=== PATIENT | male | born 1940 | race African-American/Black ===

== ENCOUNTER 2022-01-12 12:58 | Inpatient (IN) | payer OTHER ==
[~2022-01-12] VITALS: Ht 177.8 cm; Wt 76.9 kg
[~2022-01-12 12:58] MED LIST: ALBU2.5V13; LISI2.5T47; PRED1TAB
[2022-01-12] MEDS ORDERED: METHYLPREDNISOLONE SOD SUCC 125 MG/2 ML VIAL IV STA (13:29)
[2022-01-12] MEDS ORDERED: ALBUTEROL (0.083%) 2.5MG/3ML NEB HHN STA (13:29)
[2022-01-12] MEDS ORDERED: IPRATROPIUM BROMIDE (0.02%) 0.5MG/2.5ML NEB HHN STA (13:29)
[2022-01-12] MEDS ORDERED: SODIUM CHLORIDE 0.9% 1,000 ML IV ONE ×2 (13:30)
[2022-01-12 14:29] LABS: BASOPHILS % 0.5 % (0.0-2.0); LYMPHOCYTES % 23.9 % (20.0-50.0); MEAN CORPUSCULAR HEMOGLOBIN 23.8 pg (28.0-32.0); MEAN CORPUSCULAR VOLUME 77.8 fL (80.0-94.0); MEAN PLATELET VOLUME 9.3 fl (7.4-10.4); MONOCYTES % 9.9 % (2.0-8.0); NEUTROPHILS % 62.7 % (40.0-76.0); PLATELET 100 x1000/uL (130-400); RED BLOOD CELL COUNT 4.62 mill/uL (4.7-6.1)
[2022-01-12 14:34] LABS: CHLORIDE 100 mEq/L (98-107)
[2022-01-12 14:38] LABS: ETHANOL BLOOD < 10 mg/dL
[2022-01-12 14:44] LABS: CREATINE KINASE 68 IU/L (39-308)
[2022-01-12 15:15] LABS: CLARITY URINE CLEAR (CLEAR); COLOR URINE YELLOW (YELLOW); KETONES URINE NEGATIVE (NEGATIVE); LEUKOCYTE ESTERASE URINE TRACE (NEGATIVE); NITRITE URINE POSITIVE (NEGATIVE); OCCULT BLOOD URINE 2+ (NEGATIVE); PROTEIN URINE TRACE (NEGATIVE); SPECIFIC GRAVITY URINE 1.014 (1.005-1.030); UROBILINOGEN URINE 0.2 E.U./dL (0.2-1.0)
[2022-01-12] MEDS ORDERED: CEFTRIAXONE 1,000 MG in DEXTROSE 5% WATER 50 ML IV SCH (15:45)
[2022-01-12 16:10] LABS: PROTHROMBIN TIME 10.9 sec (9.6-11.0)
[2022-01-12 16:27] LABS: CANNABINOID URINE SCREEN NEGATIVE (NEGATIVE); METHADONE URINE SCREEN NEGATIVE (NEGATIVE); OPIATES URINE SCREEN NEGATIVE (NEGATIVE); PHENCYCLIDINE URINE SCREEN NEGATIVE (NEGATIVE)
[2022-01-12 16:28] LABS: *AMPHETAMINES SCREEN URINE NEGATIVE (NEGATIVE); *BARBITURATES SCREEN URINE NEGATIVE (NEGATIVE); *BENZODIAZEPINES SCREEN URINE NEGATIVE (NEGATIVE); *COCAINE SCREEN URINE NEGATIVE (NEGATIVE)
[2022-01-12 17:19] LABS: BG BASE EXCESS 10.1 mmol/L (-2.0-2.0); BG CARBOXYHEMOGLOBIN 0.7 % (0.5-1.5); BG DEOXYHEMOGLOBIN 2.9 % (0.0-5.0); BG FRACTION INSPIRED OXYGEN 28; BG HCO3 ACT 40.3 mmol/L (22.0-26.0); BG METHEMOGLOBIN 0.5 % (0.0-1.5); BG OXYGEN SATURATION 97.1 % (92.0-98.5); BG OXYHEMOGLOBIN 95.9 % (94.0-97.0); BG PCO2 91.5 mmHg (35.0-45.0); BG PH 7.262 (7.350-7.450); BG PO2 93.7 mmHg (75.0-100.0); BG SAMPLE SITE RIGHT RADIAL; BG VENT MODE MASK - VENTI
[2022-01-12] MEDS ORDERED: CEFTRIAXONE 1 G PREMIX 50 ML IV NR (18:00)
[2022-01-12] MEDS ORDERED: DOCUSATE SODIUM 100MG CAPSULE PO PRN (18:45)
[2022-01-12] MEDS ORDERED: ACETAMINOPHEN 325MG TABLET PO PRN (18:45)
[2022-01-12] MEDS ORDERED: GUAIFENESIN 200MG/10ML SUGAR FREE UDC PO PRN (18:45)
[2022-01-12] MEDS ORDERED: CLONIDINE 0.1MG TABLET PO PRN (18:45)
[2022-01-12] MEDS ORDERED: ONDANSETRON HCL 4MG/2ML INJ IV PRN (18:45)
[2022-01-12] MEDS: ENOXAPARIN 40MG/0.4ML SYR SUBCUT SCH (20:28)
[2022-01-12] MEDS: IPRATROPIUM BROMIDE (0.02%) 0.5MG/2.5ML NEB HHN SCH (20:59)
[2022-01-12] MEDS ORDERED: AZITHROMYCIN 500MG/250ML 250 ML IV NR (22:00)
[2022-01-12] MEDS: METHYLPREDNISOLONE SOD SUCC 40 MG/ML VIAL IV SCH (22:13)
[2022-01-12 22:27] LABS: BG BASE EXCESS 9.6 mmol/L (-2.0-2.0); BG CARBOXYHEMOGLOBIN 0.8 % (0.5-1.5); BG DEOXYHEMOGLOBIN 4.3 % (0.0-5.0); BG FRACTION INSPIRED OXYGEN 40; BG HCO3 ACT 37.6 mmol/L (22.0-26.0); BG METHEMOGLOBIN 0.6 % (0.0-1.5); BG OXYGEN SATURATION 95.6 % (92.0-98.5); BG OXYHEMOGLOBIN 94.3 % (94.0-97.0); BG PCO2 70.7 mmHg (35.0-45.0); BG PH 7.344 (7.350-7.450); BG PO2 75.3 mmHg (75.0-100.0); BG SAMPLE SITE RIGHT RADIAL; BG TOTAL HEMOGLOBIN 11.7 g/dL (12.0-18.0); BG TOTAL RESPIRATORY RATE 22 b/min; BG VENT MODE MASK - BIPAP
[2022-01-13] VITALS (10 sets, daily range): BP systolic 92–120; BP diastolic 54–76
[2022-01-13] MEDS: IPRATROPIUM BROMIDE (0.02%) 0.5MG/2.5ML NEB HHN SCH ×6 (01:02→20:58)
[2022-01-13] MEDS: METHYLPREDNISOLONE SOD SUCC 40 MG/ML VIAL IV SCH ×3 (06:18→22:17)
[2022-01-13 09:26] LABS: CHLORIDE 99 mEq/L (98-107)
[2022-01-13 09:36] LABS: BASOPHILS % 0.1 % (0.0-2.0); HEMATOCRIT. 34.7 % (42.0-52.0); HEMOGLOBIN. 10.8 g/dL (14.0-18.0); LYMPHOCYTES % 13.5 % (20.0-50.0); MEAN CORPUSCULAR HEMOGLOBIN 23.5 pg (28.0-32.0); MEAN CORPUSCULAR VOLUME 75.7 fL (80.0-94.0); MEAN PLATELET VOLUME 9.2 fl (7.4-10.4); MONOCYTES % 3.5 % (2.0-8.0); NEUTROPHILS % 82.9 % (40.0-76.0); PLATELET 109 x1000/uL (130-400); RED BLOOD CELL COUNT 4.58 mill/uL (4.7-6.1); RED CELL DISTRIBUTION WIDTH 14.6 % (11.6-14.6)
[2022-01-13 10:46] LABS: BG BASE EXCESS 15.2 mmol/L (-2.0-2.0); BG CARBOXYHEMOGLOBIN 0.8 % (0.5-1.5); BG DEOXYHEMOGLOBIN 6.3 % (0.0-5.0); BG FRACTION INSPIRED OXYGEN 40; BG HCO3 ACT 42.5 mmol/L (22.0-26.0); BG METHEMOGLOBIN 0.4 % (0.0-1.5); BG OXYGEN SATURATION 93.6 % (92.0-98.5); BG OXYHEMOGLOBIN 92.5 % (94.0-97.0); BG PO2 62.3 mmHg (75.0-100.0); BG TOTAL HEMOGLOBIN 11.8 g/dL (12.0-18.0); BG VENT MODE MASK - VENTI
[2022-01-13] MEDS ORDERED: FLUT1BLS9 IH (11:49)
[2022-01-13] MEDS: CEFTRIAXONE 1,000 MG in DEXTROSE 5% WATER 50 ML IV SCH (15:25)
[2022-01-13] MEDS: BUDESONIDE 0.5MG/2ML NEB HHN SCH (16:31)
[2022-01-13] MEDS ORDERED: CEFTRIAXONE 1 G PREMIX 50 ML IV SCH (18:00)
[2022-01-13] MEDS: ENOXAPARIN 40MG/0.4ML SYR SUBCUT SCH (20:33)
[2022-01-14] VITALS (16 sets, daily range): BP systolic 84–116; BP diastolic 51–77
[2022-01-14] MEDS ORDERED: DILTIAZEM HCL 5MG/ML 5ML VIAL IV NR ×2 (00:15→10:15)
[2022-01-14] MEDS ORDERED: DILTIAZEM HCL 125 MG in DEXT 5% WATER 100 ML IV PRN (00:15)
[2022-01-14] MEDS: IPRATROPIUM BROMIDE (0.02%) 0.5MG/2.5ML NEB HHN SCH ×6 (01:09→20:28)
[2022-01-14] MEDS: BUDESONIDE 0.5MG/2ML NEB HHN SCH ×3 (04:44→20:28)
[2022-01-14] MEDS: METHYLPREDNISOLONE SOD SUCC 40 MG/ML VIAL IV SCH ×3 (05:37→21:03)
[2022-01-14 06:13] LABS: CHLORIDE 100 mEq/L (98-107)
[2022-01-14 06:20] LABS: BASOPHILS % 0.1 % (0.0-2.0); HEMATOCRIT. 35.7 % (42.0-52.0); LYMPHOCYTES % 11.9 % (20.0-50.0); MEAN CORPUSCULAR HEMOGLOBIN 23.1 pg (28.0-32.0); MEAN CORPUSCULAR VOLUME 75.3 fL (80.0-94.0); MEAN PLATELET VOLUME 9.8 fl (7.4-10.4); MONOCYTES % 4.4 % (2.0-8.0); NEUTROPHILS % 83.6 % (40.0-76.0); PLATELET 126 x1000/uL (130-400); RED BLOOD CELL COUNT 4.74 mill/uL (4.7-6.1); RED CELL DISTRIBUTION WIDTH 14.8 % (11.6-14.6)
[2022-01-14 10:16] LABS: TOTAL IRON BINDING CAPACITY 239 ug/dL (250-450)
[2022-01-14] MEDS: ENOXAPARIN 80MG/0.8ML SYR SUBCUT SCH ×2 (10:25→21:03)
[2022-01-14] MEDS: DILTIAZEM HCL 125 MG in DEXT 5% WATER 100 ML IV PRN ×2 (10:45→15:39)
[2022-01-14] MEDS: DILTIAZEM HCL 30MG TABLET PO SCH ×2 (14:00→17:23)
[2022-01-14] MEDS: CEFTRIAXONE 1,000 MG in DEXTROSE 5% WATER 50 ML IV SCH (14:17)
[2022-01-15] VITALS (12 sets, daily range): BP systolic 101–121; BP diastolic 62–84
[2022-01-15] MEDS: DILTIAZEM HCL 30MG TABLET PO SCH ×4 (00:27→17:23)
[2022-01-15] MEDS: IPRATROPIUM BROMIDE (0.02%) 0.5MG/2.5ML NEB HHN SCH ×6 (00:39→20:18)
[2022-01-15] MEDS: METHYLPREDNISOLONE SOD SUCC 40 MG/ML VIAL IV SCH (05:21)
[2022-01-15 06:55] LABS: CHLORIDE 100 mEq/L (98-107)
[2022-01-15 07:00] LABS: BASOPHILS % 0.1 % (0.0-2.0); HEMATOCRIT. 35.6 % (42.0-52.0); HEMOGLOBIN. 11.1 g/dL (14.0-18.0); LYMPHOCYTES % 15.6 % (20.0-50.0); MEAN CORPUSCULAR HEMOGLOBIN 23.3 pg (28.0-32.0); MEAN CORPUSCULAR VOLUME 74.6 fL (80.0-94.0); MEAN PLATELET VOLUME 9.8 fl (7.4-10.4); MONOCYTES % 5.6 % (2.0-8.0); NEUTROPHILS % 78.7 % (40.0-76.0); PLATELET 124 x1000/uL (130-400); RED BLOOD CELL COUNT 4.78 mill/uL (4.7-6.1); RED CELL DISTRIBUTION WIDTH 14.2 % (11.6-14.6)
[2022-01-15] MEDS: ENOXAPARIN 80MG/0.8ML SYR SUBCUT SCH (08:44)
[2022-01-15] MEDS: CEFTRIAXONE 1,000 MG in DEXTROSE 5% WATER 50 ML IV SCH (12:49)
[2022-01-15] MEDS: APIXABAN 5 MG TABLET PO SCH (17:23)
[2022-01-15] MEDS: BUDESONIDE 0.5MG/2ML NEB HHN SCH (20:18)
[2022-01-16] VITALS: BP 124/79
[2022-01-16] MEDS: DILTIAZEM HCL 30MG TABLET PO SCH ×2 (00:14→06:00)
[2022-01-16] MEDS: IPRATROPIUM BROMIDE (0.02%) 0.5MG/2.5ML NEB HHN SCH ×3 (01:33→09:39)
[2022-01-16 02:00] VITALS: BP 109/76
[2022-01-16 04:00] VITALS: BP 110/78
[2022-01-16 06:00] VITALS: BP 112/78
[2022-01-16 08:00] VITALS: BP 113/68
[2022-01-16] MEDS: APIXABAN 5 MG TABLET PO SCH (08:34)
[2022-01-16 08:36] LABS: CHLORIDE 101 mEq/L (98-107)
[2022-01-16 08:39] LABS: HEMATOCRIT. 37.7 % (42.0-52.0); LYMPHOCYTES % 19.8 % (20.0-50.0); MEAN CORPUSCULAR HEMOGLOBIN 23.8 pg (28.0-32.0); MEAN CORPUSCULAR VOLUME 74.7 fL (80.0-94.0); MEAN PLATELET VOLUME 9.7 fl (7.4-10.4); MONOCYTES % 13.8 % (2.0-8.0); NEUTROPHILS % 66.4 % (40.0-76.0); PLATELET 125 x1000/uL (130-400); RED BLOOD CELL COUNT 5.04 mill/uL (4.7-6.1); RED CELL DISTRIBUTION WIDTH 14.6 % (11.6-14.6)
[2022-01-16] MEDS ORDERED: METHYLPREDNISOLONE SOD SUCC 40 MG/ML VIAL IV SCH (09:00)
[2022-01-16] MEDS ORDERED: APIX5TAB PO (09:05)
[2022-01-16] MEDS ORDERED: DILT30TA38 PO (09:05)
[2022-01-16] MEDS ORDERED: P20 MT (09:05)
[2022-01-16] MEDS: BUDESONIDE 0.5MG/2ML NEB HHN SCH (09:38)
[2022-01-16 09:45] VITALS: BP_SYST 101; BP_SYST 130; BP_DIAS 73; BP_DIAS 94
== END 2022-01-16 11:21 | disposition home or self-care (01) | DRG 871 ==
LOC: ER 12:58 → EDBD 12:58 → EDBEDREQTM 16:03 → EDBEDREQSVC 16:03 → EDBEDREQ 16:03 → MICUSO 18:20 → EDBEDREQ 18:24 → EDBEDREQTM 18:24 → EDBEDREQSVC 18:24 → EDBEDREQ 23:15 → 3WST 01-13 10:21
PROVIDERS: ADMIT Internal Medicine; ATTEND Internal Medicine
PROC: 5A09357 Assistance with Respiratory Ventilation, Less than 24 Consecutive Hours, Continuous Positive Airway Pressure (ICD-10-PCS; principal; 2022-01-12)
PROC: 5A09357 Assistance with Respiratory Ventilation, Less than 24 Consecutive Hours, Continuous Positive Airway Pressure (ICD-10-PCS; 2022-01-13)
DX: A41.59 Other Gram-negative sepsis (principal); J96.22 Acute and chronic respiratory failure with hypercapnia; E44.1 Mild protein-calorie malnutrition; G93.40 Encephalopathy, unspecified; J44.1 Chronic obstructive pulmonary disease with (acute) exacerbation; J84.9 Interstitial pulmonary disease, unspecified; N39.0 Urinary tract infection, site not specified; I42.9 Cardiomyopathy, unspecified; Z20.822 Contact with and (suspected) exposure to COVID-19; D64.9 Anemia, unspecified; I48.0 Paroxysmal atrial fibrillation; D69.6 Thrombocytopenia, unspecified; F17.200 Nicotine dependence, unspecified, uncomplicated; I10 Essential (primary) hypertension; Z85.46 Personal history of malignant neoplasm of prostate; Z99.81 Dependence on supplemental oxygen; Z68.24 Body mass index [BMI] 24.0-24.9, adult; Z79.899 Other long term (current) drug therapy; Z71.6 Tobacco abuse counseling
CPT/HCPCS: 36415; 36600; 71045; 80048; 80053; 80305; 80320; 81003; 82375; 82550; 82805; 83540; 83550; 83605; 83735; 83880; 84145; 84443; 84484; 85025; 87077; 87186; 87426; 93005; 93306; 94640; 94660; 97162; 99291; J0456; J0696; J1650; J2920; J2930; J3490; J7030; J7060; J7626; G0480

== ENCOUNTER 2022-10-30 23:51 | Inpatient (IN) | payer OTHER ==
[~2022-10-30] VITALS: Ht 170.2 cm; Wt 66.2 kg
[~2022-10-30 23:51] MED LIST changes: +APIX5TAB PO; +DILT30TA38 PO; +FLUT1BLS9 IH; +P20 MT; -PRED1TAB
[2022-10-31] MEDS ORDERED: METHYLPREDNISOLONE SOD SUCC 125 MG/2 ML VIAL IV STA (00:20)
[2022-10-31] MEDS ORDERED: IPRATROPIUM BROMIDE (0.02%) 0.5MG/2.5ML NEB HHN STA (00:20)
[2022-10-31] MEDS ORDERED: ALBUTEROL (0.083%) 2.5MG/3ML NEB HHN STA (00:20)
[2022-10-31 01:07] LABS: BASOPHILS % 0.4 % (0.0-2.0); EOSINOPHILS % 1.9 % (0.0-5.0); HEMATOCRIT. 41.8 % (42.0-52.0); HEMOGLOBIN. 12.7 g/dL (14.0-18.0); LYMPHOCYTES % 23.4 % (20.0-50.0); MEAN CORPUSCULAR HEMOGLOBIN 23.1 pg (28.0-32.0); MEAN CORPUSCULAR VOLUME 75.9 fL (80.0-94.0); MEAN PLATELET VOLUME 8.9 fl (7.4-10.4); MONOCYTES % 8.6 % (2.0-8.0); NEUTROPHILS % 65.7 % (40.0-76.0); PLATELET 122 x1000/uL (130-400); RED BLOOD CELL COUNT 5.51 mill/uL (4.7-6.1); RED CELL DISTRIBUTION WIDTH 16.3 % (11.6-14.6)
[2022-10-31 01:15] LABS: CHLORIDE 97 mEq/L (98-107)
[2022-10-31 01:24] LABS: INR 1.1; PROTHROMBIN TIME 11.8 sec (9.6-11.0)
[2022-10-31 03:06] LABS: BG BASE EXCESS 11.8 mmol/L (-2.0-2.0); BG CARBOXYHEMOGLOBIN 1.5 % (0.5-1.5); BG HCO3 ACT 43.3 mmol/L (22.0-26.0); BG METHEMOGLOBIN 0.3 % (0.0-1.5); BG OXYGEN SATURATION 92.9 % (92.0-98.5); BG OXYHEMOGLOBIN 91.2 % (94.0-97.0); BG PCO2 104.5 mmHg (35.0-45.0); BG PH 7.235 (7.350-7.450); BG SAMPLE SITE RIGHT BRACHIAL; BG TOTAL HEMOGLOBIN 12.4 g/dL (12.0-18.0); BG VENT MODE NASAL CANNULA
[2022-10-31] MEDS ORDERED: ONDANSETRON HCL 4MG/2ML INJ IV PRN (08:30)
[2022-10-31] MEDS ORDERED: ACETAMINOPHEN 325MG TABLET PO PRN (08:30)
[2022-10-31] MEDS: METHYLPREDNISOLONE SOD SUCC 40 MG/ML VIAL IV SCH ×2 (09:17→16:39)
[2022-10-31 09:43] LABS: CLARITY URINE CLEAR (CLEAR); COLOR URINE YELLOW (YELLOW); KETONES URINE NEGATIVE (NEGATIVE); LEUKOCYTE ESTERASE URINE NEGATIVE (NEGATIVE); NITRITE URINE NEGATIVE (NEGATIVE); OCCULT BLOOD URINE TRACE (NEGATIVE); PH URINE 5.5 (4.5-8.0); PROTEIN URINE 1+ (NEGATIVE); SPECIFIC GRAVITY URINE 1.012 (1.005-1.030); UROBILINOGEN URINE 0.2 E.U./dL (0.2-1.0)
[2022-10-31] MEDS ORDERED: IPRATROPIUM/ALBUTEROL 0.5-3(2.5)MG/3ML NEB HHN PRN (10:15)
[2022-10-31 10:44] LABS: BG BASE EXCESS 14.9 mmol/L (-2.0-2.0); BG CARBOXYHEMOGLOBIN 0.3 % (0.5-1.5); BG DEOXYHEMOGLOBIN 3.6 % (0.0-5.0); BG FRACTION INSPIRED OXYGEN 50; BG HCO3 ACT 45.4 mmol/L (22.0-26.0); BG METHEMOGLOBIN 0.4 % (0.0-1.5); BG OXYGEN SATURATION 96.4 % (92.0-98.5); BG OXYHEMOGLOBIN 95.7 % (94.0-97.0); BG PCO2 93.4 mmHg (35.0-45.0); BG PH 7.305 (7.350-7.450); BG PO2 91.9 mmHg (75.0-100.0); BG SAMPLE SITE RIGHT RADIAL; BG TOTAL HEMOGLOBIN 12.8 g/dL (12.0-18.0); BG TOTAL RESPIRATORY RATE 28 b/min; BG VENT MODE MASK - BIPAP
[2022-10-31] MEDS: IPRATROPIUM/ALBUTEROL 0.5-3(2.5)MG/3ML NEB HHN SCH ×4 (11:21→23:48)
[2022-10-31] MEDS: FAMOTIDINE 20MG TABLET PO SCH (21:07)
[2022-11-01] VITALS (7 sets, daily range): BP systolic 102–117; BP diastolic 64–77
[2022-11-01] MEDS: METHYLPREDNISOLONE SOD SUCC 40 MG/ML VIAL IV SCH ×3 (00:52→17:39)
[2022-11-01] MEDS: IPRATROPIUM/ALBUTEROL 0.5-3(2.5)MG/3ML NEB HHN SCH ×4 (03:03→20:22)
[2022-11-01] MEDS ORDERED: P20 MT (11:35)
[2022-11-01] MEDS: FAMOTIDINE 20MG TABLET PO SCH (20:34)
[2022-11-02] VITALS (10 sets, daily range): BP systolic 105–126; BP diastolic 65–71
[2022-11-02] MEDS: METHYLPREDNISOLONE SOD SUCC 40 MG/ML VIAL IV SCH ×3 (00:13→17:01)
[2022-11-02] MEDS: IPRATROPIUM/ALBUTEROL 0.5-3(2.5)MG/3ML NEB HHN SCH ×5 (00:25→16:39)
== END 2022-11-02 18:11 | disposition home or self-care (01) | DRG 189 ==
LOC: ER 23:51 → MICUSO 10-31 03:29 → EDBEDREQTM 10-31 03:35 → EDBEDREQ 10-31 03:35 → EDBEDREQSVC 10-31 03:35 → 5EST 11-01 09:36
PROVIDERS: ADMIT Internal Medicine; ATTEND Internal Medicine
PROC: 5A09357 Assistance with Respiratory Ventilation, Less than 24 Consecutive Hours, Continuous Positive Airway Pressure (ICD-10-PCS; principal; 2022-10-31)
DX: J96.21 Acute and chronic respiratory failure with hypoxia (principal); J44.1 Chronic obstructive pulmonary disease with (acute) exacerbation; E87.29 Other acidosis; I50.22 Chronic systolic (congestive) heart failure; J96.22 Acute and chronic respiratory failure with hypercapnia; I11.0 Hypertensive heart disease with heart failure; I48.0 Paroxysmal atrial fibrillation; Z20.822 Contact with and (suspected) exposure to COVID-19; F17.210 Nicotine dependence, cigarettes, uncomplicated; Z99.81 Dependence on supplemental oxygen; Z85.46 Personal history of malignant neoplasm of prostate
CPT/HCPCS: 36415; 36600; 71045; 80053; 81003; 82375; 82805; 83605; 83880; 84484; 85025; 87426; 87804; 93005; 94640; 97162; 99291; J2920; J2930; A4315

== ENCOUNTER 2024-01-06 00:48 | Emergency (ER) | payer OTHER ==
[~2024-01-06] VITALS: Ht 182.9 cm; Wt 72.0 kg
[~2024-01-06 00:48] MED LIST changes: -ALBU2.5V13; +ALBU2.5V13 IH; +ALBU6.7H3 INH; +AMI2; +CARV3.1242 PO; -DILT30TA38 PO; -FLUT1BLS9 IH; +FURO20TA4 PO; -LISI2.5T47; +ROSU20TA2 PO; +TIOT4MIS2 IH
[2024-01-06 01:31] LABS: HEMATOCRIT. 35.5 % (42.0-52.0); HEMOGLOBIN. 10.7 g/dL (14.0-18.0); MEAN CORPUSCULAR HEMOGLOBIN 23.4 pg (28.0-32.0); MEAN CORPUSCULAR HGB CONC 30.1 g/dL (31.0-37.0); MEAN CORPUSCULAR VOLUME 77.7 fL (80.0-94.0); MEAN PLATELET VOLUME 9.5 fl (7.4-10.4); PLATELET 137 x1000/uL (130-400); RED BLOOD CELL COUNT 4.56 mill/uL (4.7-6.1); RED CELL DISTRIBUTION WIDTH 17.3 % (11.6-14.6); WHITE BLOOD COUNT 7.6 x1000/uL (4.5-11.0)
[2024-01-06 01:33] LABS: DIFFERENTIAL COMMENT 1
[2024-01-06 01:46] LABS: ALANINE AMINOTRANSFERASE 11 IU/L (10-49); ALBUMIN 3.6 g/dL (3.2-4.8); ASPARTATE AMINOTRANSFERASE 22 IU/L (<34); BILIRUBIN TOTAL 0.2 mg/dL (0.1-1.0); CHLORIDE 102 mEq/L (98-107); CREATININE 0.9 mg/dL (0.6-1.3); GLUCOSE 94 mg/dL (70-105); PROTEIN TOTAL 6.2 g/dL (6.0-8.3); SODIUM 145 mEq/L (136-145); TROPONIN I HIGH SENSITIVITY 5 ng/L (3.0-53); UREA NITROGEN BLOOD 7 mg/dL (9-23)
[2024-01-06 01:47] LABS: CARBON DIOXIDE > 40 mEq/L (21-32); ETHANOL BLOOD < 10 mg/dL (<10)
[2024-01-06] MEDS ORDERED: ALBUTEROL (0.083%) 2.5MG/3ML NEB HHN NR (02:14)
[2024-01-06] MEDS ORDERED: IPRATROPIUM BROMIDE (0.02%) 0.5MG/2.5ML NEB HHN NR (02:14)
[2024-01-06 02:45] LABS: PLATELET ESTIMATE NORMAL
[2024-01-06 02:48] LABS: HYPOCHROMASIA 1+; MICROCYTOSIS 1+
[2024-01-06 03:51] VITALS: O2SAT 100
[2024-01-06] MEDS: METHYLPREDNISOLONE SOD SUCC 125MG/2ML (ACT-O-VIAL) IV NR (04:19)
[2024-01-06 06:31] VITALS: TEMP 98.2
[2024-01-06 06:38] VITALS: BP 108/70; PULSE 90; RESP 20
== END 2024-01-06 06:10 | disposition short-term general hospital (02) ==
LOC: ER 00:48
DX: J44.1 Chronic obstructive pulmonary disease with (acute) exacerbation (principal); E87.3 Alkalosis; I50.9 Heart failure, unspecified; Z00.00 Encounter for general adult medical examination without abnormal findings; Z79.899 Other long term (current) drug therapy; Z20.822 Contact with and (suspected) exposure to COVID-19
CPT/HCPCS: 80053; 80320; 83880; 83605; 85025; 87040; 84484; 36415; 71045; 93005; 96374; 99285; 87426; J2930; G0480

== ENCOUNTER 2024-08-11 04:47 | Emergency (ER) | payer MEDICARE, OTHER ==
[~2024-08-11] VITALS: Ht 172.7 cm; Wt 68.0 kg
[~2024-08-11 04:47] MED LIST changes: +ACET-2708 MT; +ACET650S27 RC; -ALBU2.5V13 IH; +ALBU6.7H15 PO; -ALBU6.7H3 INH; -AMI2; +AMI2 PO; +APIX5TAB MT; -APIX5TAB PO; +CARB15DR68 OT; +DOCU-150 MT; -FURO20TA4 PO; +HALO2ORA3 MT; +HYOS-16 SL; +IPRA3AMP31 IH; +LORA-249 MT; +ONDA-241 MT; -P20 MT; +POLY17PO3 MT; +ROFL500T9 PO; -ROSU20TA2 PO; -TIOT4MIS2 IH; +[UNRECOGNIZED DRUG - CODE] PO
[2024-08-11 04:51] VITALS: O2SAT 98
[2024-08-11] MEDS: SODIUM CHLORIDE 0.9% 1,000 ML IV ONE (05:45)
[2024-08-11] MEDS: MORPHINE SULFATE 4 MG/ML INJ (FOR IV/IM USE) IV STA (06:19)
[2024-08-11] MEDS: ONDANSETRON HCL 4MG/2ML INJ IV STA (06:19)
[2024-08-11 06:57] LABS: BASOPHILS % 0.6 % (0.0-2.0); DIFFERENTIAL COMMENT 0; EOSINOPHILS % 2.1 % (0.0-5.0); HEMATOCRIT. 35.6 % (42.0-52.0); HEMOGLOBIN. 10.8 g/dL (14.0-18.0); LYMPHOCYTES % 33.6 % (20.0-50.0); MEAN CORPUSCULAR HEMOGLOBIN 22.6 pg (28.0-32.0); MEAN CORPUSCULAR HGB CONC 30.4 g/dL (31.0-37.0); MEAN CORPUSCULAR VOLUME 74.1 fL (80.0-94.0); MEAN PLATELET VOLUME 9.2 fl (7.4-10.4); MONOCYTES % 9.6 % (2.0-8.0); NEUTROPHILS % 54.1 % (40.0-76.0); PLATELET 151 x1000/uL (130-400); RED CELL DISTRIBUTION WIDTH 17.5 % (11.6-14.6)
[2024-08-11 07:04] LABS: CHLORIDE 103 mEq/L (98-107); POTASSIUM 3.9 mEq/L (3.5-5.1); SODIUM 145 mEq/L (136-145)
[2024-08-11 07:05] LABS: CALCIUM 9.8 mg/dL (8.7-10.4); CARBON DIOXIDE 36 mEq/L (21-32)
[2024-08-11 07:10] LABS: CREATININE 0.7 mg/dL (0.6-1.3); GLUCOSE 76 mg/dL (70-105); UREA NITROGEN BLOOD 11 mg/dL (9-23)
[2024-08-11 07:11] LABS: TROPONIN I HIGH SENSITIVITY 5 ng/L (3.0-53)
[2024-08-11 07:12] LABS: ALANINE AMINOTRANSFERASE 14 IU/L (10-49); ASPARTATE AMINOTRANSFERASE 22 IU/L (<34)
[2024-08-11 07:13] LABS: BILIRUBIN TOTAL 0.3 mg/dL (0.1-1.0); PROTEIN TOTAL 6.7 g/dL (6.0-8.3)
[2024-08-11 07:19] LABS: BILIRUBIN DIRECT < 0.1 mg/dL (<=3.0)
[2024-08-11 07:20] LABS: ETHANOL BLOOD < 10 mg/dL (<10)
[2024-08-11 08:54] LABS: INR 2.1; PROTHROMBIN TIME 22.4 sec (9.6-11.0)
[2024-08-11 09:05] LABS: TROPONIN I HIGH SENSITIVITY < 4 ng/L (3.0-53)
[2024-08-11 10:39] LABS: CLARITY URINE CLEAR (CLEAR); COLOR URINE YELLOW (YELLOW); GLUCOSE URINE NEGATIVE (NEGATIVE); KETONES URINE 1+ (NEGATIVE); LEUKOCYTE ESTERASE URINE NEGATIVE (NEGATIVE); NITRITE URINE NEGATIVE (NEGATIVE); OCCULT BLOOD URINE TRACE (NEGATIVE); PH URINE 5.5 (4.5-8.0); PROTEIN URINE NEGATIVE (NEGATIVE); UROBILINOGEN URINE 0.2 E.U./dL (0.2-1.0)
[2024-08-11 11:04] LABS: MUCUS URINE TRACE /lpf (NONE/TRACE); SQUAMOUS EPITHELIAL CELL URINE 1+ /lpf (RARE/1+)
[2024-08-11 11:06] LABS: BACTERIA URINE TRACE; RBC URINE 0-2 /hpf (0-2); WBC URINE 0-2 /hpf (0-2)
[2024-08-11] MEDS: IPRATROPIUM/ALBUTEROL 0.5-3(2.5)MG/3ML NEB HHN NR (14:53)
[2024-08-11 14:54] VITALS: PULSE 108; RESP 27
[2024-08-11 17:19] VITALS: BP 110/78; PULSE 80; RESP 16; TEMP 36.89184; O2SAT 98
== END 2024-08-11 17:20 | disposition home or self-care (01) ==
LOC: ER 04:47 → CANBEDREQ 13:24 → ER 17:20
DX: R10.9 Unspecified abdominal pain (principal); R06.02 Shortness of breath; I50.9 Heart failure, unspecified; Z79.899 Other long term (current) drug therapy
CPT/HCPCS: 80076; 80048; 81003; 80320; 83605; 83690; 85025; 85610; 84484; 36415; 71045; 74176; 94640; 93005; 96361; 96374; 96375; 99285; J2405; J2270; J7030; G0480

== ENCOUNTER 2024-10-17 09:53 | Inpatient (IN) | payer OTHER ==
[~2024-10-17] VITALS: Ht 172.7 cm; Wt 64.2 kg
[~2024-10-17 09:53] MED LIST changes: -DOCU-150 MT; +DOCU-422 MT
[2024-10-17] MEDS: PIPERACILLIN/TAZO 3.375G/50ML 50 ML IV ONE (10:30)
[2024-10-17] MEDS: VANCOMYCIN 1G PREMIX 200 ML IV ONE (10:30)
[2024-10-17] MEDS: SODIUM CHLORIDE 0.9% (SEPSIS BOLUS) IV ONE (10:42)
[2024-10-17 11:06] LABS: BASOPHILS % 0.4 % (0.0-2.0); DIFFERENTIAL COMMENT 0; EOSINOPHILS % 0.5 % (0.0-5.0); MEAN CORPUSCULAR HEMOGLOBIN 22.6 pg (28.0-32.0); MEAN CORPUSCULAR HGB CONC 28.8 g/dL (31.0-37.0); MEAN CORPUSCULAR VOLUME 78.5 fL (80.0-94.0); MEAN PLATELET VOLUME 9.2 fl (7.4-10.4); MONOCYTES % 9.8 % (2.0-8.0); NEUTROPHILS % 73.3 % (40.0-76.0); PLATELET 138 x1000/uL (130-400); RED BLOOD CELL COUNT 4.84 mill/uL (4.7-6.1); RED CELL DISTRIBUTION WIDTH 17.9 % (11.6-14.6); WHITE BLOOD COUNT 11.3 x1000/uL (4.5-11.0)
[2024-10-17 11:12] LABS: CHLORIDE 99 mEq/L (98-107); POTASSIUM 4.3 mEq/L (3.5-5.1); SODIUM 148 mEq/L (136-145)
[2024-10-17 11:14] LABS: CALCIUM 10.2 mg/dL (8.7-10.4)
[2024-10-17 11:17] LABS: INR 1.1
[2024-10-17 11:18] LABS: CREATININE 0.8 mg/dL (0.6-1.3); GLUCOSE 90 mg/dL (70-105)
[2024-10-17 11:19] LABS: TROPONIN I HIGH SENSITIVITY 10 ng/L (3.0-53); UREA NITROGEN BLOOD 15 mg/dL (9-23)
[2024-10-17 11:20] LABS: ALANINE AMINOTRANSFERASE 26 IU/L (10-49); ALBUMIN 4.1 g/dL (3.2-4.8); ASPARTATE AMINOTRANSFERASE 31 IU/L (<34)
[2024-10-17 11:21] LABS: BILIRUBIN TOTAL 0.2 mg/dL (0.1-1.0); PROTEIN TOTAL 7.3 g/dL (6.0-8.3)
[2024-10-17 11:43] LABS: BILIRUBIN DIRECT < 0.1 mg/dL (<=3.0)
[2024-10-17 11:45] LABS: CARBON DIOXIDE > 40 mEq/L (21-32)
[2024-10-17 12:20] LABS: BG BASE EXCESS 19.7 mmol/L (-2.0-3.0); BG CARBOXYHEMOGLOBIN 0.4 % (0.5-1.5); BG DEOXYHEMOGLOBIN 0.1 % (0.0-5.0); BG FRACTION INSPIRED OXYGEN 36; BG HCO3 ACT 54.5 mmol/L (21.0-28.0); BG METHEMOGLOBIN 0.2 % (0.5-1.5); BG OXYGEN SATURATION 99.9 % (94.0-98.0); BG OXYHEMOGLOBIN 99.3 % (94.0-98.0); BG PCO2 160.3 mmHg (35.0-48.0); BG PH 7.149 (7.350-7.450); BG PO2 255.1 mmHg (83.0-108.0); BG SAMPLE SITE RIGHT RADIAL; BG TOTAL HEMOGLOBIN 11.6 g/dL (13.5-17.5); BG VENT MODE NASAL CANNULA
[2024-10-17] MEDS ORDERED: ONDANSETRON HCL 4MG/2ML INJ IV PRN (12:30)
[2024-10-17] MEDS ORDERED: CLONIDINE 0.1MG TABLET PO PRN (12:30)
[2024-10-17] MEDS ORDERED: ACETAMINOPHEN 325MG TABLET PO PRN (12:30)
[2024-10-17] MEDS ORDERED: LORAZEPAM 0.5MG TABLET PO PRN (12:30)
[2024-10-17 13:00] VITALS: RESP 25
[2024-10-17 13:04] LABS: CLARITY URINE CLEAR (CLEAR); COLOR URINE YELLOW (YELLOW); GLUCOSE URINE NEGATIVE (NEGATIVE); KETONES URINE NEGATIVE (NEGATIVE); LEUKOCYTE ESTERASE URINE NEGATIVE (NEGATIVE); NITRITE URINE NEGATIVE (NEGATIVE); OCCULT BLOOD URINE 1+ (NEGATIVE); PH URINE 5.5 (4.5-8.0); PROTEIN URINE 1+ (NEGATIVE); SPECIFIC GRAVITY URINE 1.018 (1.005-1.030)
[2024-10-17] MEDS: AMIODARONE 200MG TABLET PO SCH (13:15)
[2024-10-17 13:26] LABS: COARSE GRANULAR CASTS URINE 0-5 /lpf; FINE GRANULAR CASTS URINE 0-5 /lpf; HYALINE CASTS URINE 0-5 /lpf
[2024-10-17 13:27] LABS: RBC URINE 0-2 /hpf (0-2); SQUAMOUS EPITHELIAL CELL URINE 1+ /lpf (RARE/1+)
[2024-10-17 13:28] LABS: BACTERIA URINE TRACE
[2024-10-17] MEDS: METHYLPREDNISOLONE SOD SUCC 40MG/ML (ACT-O-VIAL) IV SCH (13:56)
[2024-10-17] MEDS: ENOXAPARIN 40MG/0.4ML SYR SUBCUT SCH (14:00)
[2024-10-17 14:30] LABS: *AMPHETAMINES SCREEN URINE NEGATIVE (NEGATIVE); *BENZODIAZEPINES SCREEN URINE NEGATIVE (NEGATIVE)
[2024-10-17 14:31] LABS: *BARBITURATES SCREEN URINE NEGATIVE (NEGATIVE); *COCAINE SCREEN URINE NEGATIVE (NEGATIVE)
[2024-10-17 14:32] LABS: CANNABINOID URINE SCREEN NEGATIVE (NEGATIVE); ECSTASY MDMA SCREEN URINE NEGATIVE (NEGATIVE); METHADONE URINE SCREEN NEGATIVE (NEGATIVE); OPIATES URINE SCREEN NEGATIVE (NEGATIVE); PHENCYCLIDINE URINE SCREEN NEGATIVE (NEGATIVE)
[2024-10-17] MEDS: PIPERACILLIN/TAZO 3.375G/50ML 50 ML IV NR (16:00)
[2024-10-17] MEDS: IPRATROPIUM/ALBUTEROL 0.5-3(2.5)MG/3ML NEB HHN SCH (20:24)
[2024-10-17 20:28] VITALS: PULSE 92; RESP 18; O2SAT 99
[2024-10-17] MEDS: CARVEDILOL 3.125 MG TABLET PO SCH (21:00)
[2024-10-17] MEDS: PIPERACILLIN/TAZO 3.375G/100ML IV SCH (22:16)
[2024-10-17] MEDS: VANCOMYCIN 750MG/150ML (BAXTER) IV SCH (23:43)
[2024-10-18] VITALS (8 sets, daily range): BP systolic 100–118; BP diastolic 65–73; PULSE 98–120; RESP 17–22; TEMP 36.4736–37.11408; O2SAT 92–99
[2024-10-18 05:20] LABS: DIFFERENTIAL COMMENT 0; EOSINOPHILS % 0.1 % (0.0-5.0); HEMATOCRIT. 36.5 % (42.0-52.0); HEMOGLOBIN. 10.9 g/dL (14.0-18.0); LYMPHOCYTES % 8.9 % (20.0-50.0); MEAN CORPUSCULAR HEMOGLOBIN 23.1 pg (28.0-32.0); MEAN CORPUSCULAR HGB CONC 29.8 g/dL (31.0-37.0); MEAN CORPUSCULAR VOLUME 77.5 fL (80.0-94.0); MEAN PLATELET VOLUME 8.9 fl (7.4-10.4); MONOCYTES % 2.3 % (2.0-8.0); NEUTROPHILS % 88.7 % (40.0-76.0); PLATELET 135 x1000/uL (130-400); RED BLOOD CELL COUNT 4.71 mill/uL (4.7-6.1); RED CELL DISTRIBUTION WIDTH 18.1 % (11.6-14.6); WHITE BLOOD COUNT 7.7 x1000/uL (4.5-11.0)
[2024-10-18 05:29] LABS: CHLORIDE 103 mEq/L (98-107); POTASSIUM 4.4 mEq/L (3.5-5.1); SODIUM 149 mEq/L (136-145)
[2024-10-18 05:30] LABS: CALCIUM 9.9 mg/dL (8.7-10.4)
[2024-10-18 05:35] LABS: CREATININE 0.9 mg/dL (0.6-1.3); GLUCOSE 130 mg/dL (70-105); UREA NITROGEN BLOOD 13 mg/dL (9-23)
[2024-10-18 05:36] LABS: CREATINE KINASE MB FRACTION 1.1 ng/mL (0.5-3.6); TROPONIN I HIGH SENSITIVITY 8 ng/L (3.0-53)
[2024-10-18 05:37] LABS: CREATINE KINASE 45 IU/L (46-171)
[2024-10-18 05:43] LABS: CARBON DIOXIDE > 40 mEq/L (21-32)
[2024-10-18 22:54] LABS: CREATINE KINASE 100 IU/L (46-171); CREATINE KINASE MB FRACTION < 0.5 ng/mL (0.5-3.6)
[2024-10-18 23:25] LABS: TROPONIN I HIGH SENSITIVITY 10 ng/L (3.0-53)
[2024-10-19] VITALS (12 sets, daily range): BP systolic 88–137; BP diastolic 40–65; PULSE 82–107; RESP 17–20; TEMP 36.114–36.55848; O2SAT 96–100
[2024-10-19 05:10] LABS: BG BASE EXCESS 11.8 mmol/L (-2.0-3.0); BG CARBOXYHEMOGLOBIN 0.5 % (0.5-1.5); BG DEOXYHEMOGLOBIN 14.2 % (0.0-5.0); BG FRACTION INSPIRED OXYGEN 21; BG HCO3 ACT 36.5 mmol/L (21.0-28.0); BG OXYGEN SATURATION 85.7 % (94.0-98.0); BG OXYHEMOGLOBIN 85.3 % (94.0-98.0); BG PCO2 48.8 mmHg (35.0-48.0); BG PH 7.492 (7.350-7.450); BG PO2 47.5 mmHg (83.0-108.0); BG SAMPLE SITE RIGHT RADIAL; BG TOTAL HEMOGLOBIN 10.6 g/dL (13.5-17.5); BG VENT MODE ROOM AIR
[2024-10-19] MEDS: LACTULOSE 20G/30ML UDC PO SCH (11:38)
[2024-10-19 13:14] LABS: CHLORIDE 102 mEq/L (98-107); POTASSIUM 3.4 mEq/L (3.5-5.1); SODIUM 147 mEq/L (136-145)
[2024-10-19 13:15] LABS: CALCIUM 9.5 mg/dL (8.7-10.4)
[2024-10-19 13:17] LABS: BASOPHILS % 0.1 % (0.0-2.0); DIFFERENTIAL COMMENT 0; HEMOGLOBIN. 10.2 g/dL (14.0-18.0); LYMPHOCYTES % 10.7 % (20.0-50.0); MEAN CORPUSCULAR HEMOGLOBIN 22.7 pg (28.0-32.0); MEAN CORPUSCULAR HGB CONC 30.1 g/dL (31.0-37.0); MEAN CORPUSCULAR VOLUME 75.3 fL (80.0-94.0); MEAN PLATELET VOLUME 9.7 fl (7.4-10.4); MONOCYTES % 1.9 % (2.0-8.0); NEUTROPHILS % 87.3 % (40.0-76.0); PLATELET 124 x1000/uL (130-400); RED BLOOD CELL COUNT 4.51 mill/uL (4.7-6.1); RED CELL DISTRIBUTION WIDTH 18.1 % (11.6-14.6); WHITE BLOOD COUNT 7.1 x1000/uL (4.5-11.0)
[2024-10-19 13:20] LABS: CREATININE 0.9 mg/dL (0.6-1.3); GLUCOSE 256 mg/dL (70-105); UREA NITROGEN BLOOD 22 mg/dL (9-23)
[2024-10-19 14:18] LABS: CARBON DIOXIDE > 40 mEq/L (21-32)
[2024-10-19] MEDS: POTASSIUM CHLORIDE 20MEQ/PACKET PO NR (14:42)
[2024-10-19] MEDS ORDERED: VANCOMYCIN 500MG PREMIX 100 ML IV SCH (16:00)
[2024-10-19] MEDS ORDERED: VANCOMYCIN 750MG/150ML (BAXTER) IV SCH (21:00)
[2024-10-19 21:43] LABS: BG BASE EXCESS 12.9 mmol/L (-2.0-3.0); BG CARBOXYHEMOGLOBIN 0.1 % (0.5-1.5); BG DEOXYHEMOGLOBIN 4.9 % (0.0-5.0); BG FRACTION INSPIRED OXYGEN 28; BG HCO3 ACT 37.7 mmol/L (21.0-28.0); BG METHEMOGLOBIN 0.3 % (0.5-1.5); BG OXYGEN SATURATION 95.1 % (94.0-98.0); BG OXYHEMOGLOBIN 94.7 % (94.0-98.0); BG PCO2 49.2 mmHg (35.0-48.0); BG PH 7.502 (7.350-7.450); BG PO2 68.8 mmHg (83.0-108.0); BG SAMPLE SITE RIGHT RADIAL; BG TOTAL HEMOGLOBIN 10.8 g/dL (13.5-17.5); BG VENT MODE NASAL CANNULA
[2024-10-20] VITALS (12 sets, daily range): BP systolic 92–111; BP diastolic 60–74; PULSE 70–102; RESP 12–20; TEMP 36.22512–36.78072; O2SAT 96–100
[2024-10-20 12:40] LABS: BASOPHILS % 0.2 % (0.0-2.0); DIFFERENTIAL COMMENT 0; HEMATOCRIT. 33.1 % (42.0-52.0); HEMOGLOBIN. 10.2 g/dL (14.0-18.0); LYMPHOCYTES % 9.9 % (20.0-50.0); MEAN CORPUSCULAR HEMOGLOBIN 23.1 pg (28.0-32.0); MEAN CORPUSCULAR HGB CONC 30.8 g/dL (31.0-37.0); MEAN PLATELET VOLUME 9.9 fl (7.4-10.4); MONOCYTES % 6.6 % (2.0-8.0); NEUTROPHILS % 83.3 % (40.0-76.0); PLATELET 130 x1000/uL (130-400); RED BLOOD CELL COUNT 4.42 mill/uL (4.7-6.1); RED CELL DISTRIBUTION WIDTH 17.5 % (11.6-14.6); WHITE BLOOD COUNT 7.6 x1000/uL (4.5-11.0)
[2024-10-20 12:50] LABS: CHLORIDE 103 mEq/L (98-107); POTASSIUM 3.6 mEq/L (3.5-5.1); SODIUM 144 mEq/L (136-145)
[2024-10-20 12:51] LABS: CARBON DIOXIDE 35 mEq/L (21-32)
[2024-10-20 12:52] LABS: CALCIUM 9.3 mg/dL (8.7-10.4)
[2024-10-20 12:56] LABS: CREATININE 0.8 mg/dL (0.6-1.3)
[2024-10-20 12:57] LABS: GLUCOSE 183 mg/dL (70-105); UREA NITROGEN BLOOD 17 mg/dL (9-23)
[2024-10-20] MEDS ORDERED: GUAIFENESIN-DM 200MG-20MG/10ML UDC PO PRN (13:45)
[2024-10-20] MEDS ORDERED: ACETYLCYSTEINE 200MG/ML 20% VIAL 4ML INH SCH (14:00)
[2024-10-20] MEDS: VANCOMYCIN 1.25GM PMX (XELLIA) 250 ML IV SCH (15:38)
== END 2024-10-20 22:13 | disposition short-term general hospital (02) | DRG 70 ==
LOC: ER 09:53 → MICUSO 12:39 → EDBEDREQ 12:45 → EDBEDREQSVC 10-18 03:54 → 7WST 10-18 15:01
PROVIDERS: ADMIT Internal Medicine; ATTEND Internal Medicine
PROC: 5A09357 Assistance with Respiratory Ventilation, Less than 24 Consecutive Hours, Continuous Positive Airway Pressure (ICD-10-PCS; principal; 2024-10-17)
DX: G93.41 Metabolic encephalopathy (principal); J96.22 Acute and chronic respiratory failure with hypercapnia; J44.1 Chronic obstructive pulmonary disease with (acute) exacerbation; Z20.822 Contact with and (suspected) exposure to COVID-19; Z99.81 Dependence on supplemental oxygen; I50.9 Heart failure, unspecified; I11.0 Hypertensive heart disease with heart failure; F17.210 Nicotine dependence, cigarettes, uncomplicated
CPT/HCPCS: 36415; 36600; 71045; 80048; 80076; 80202; 80305; 81003; 82375; 82550; 82553; 82805; 83605; 84145; 84484; 85025; 87426; 87804; 93005; 93306; 93970; 94640; 94660; 99291; J1650; J2543; J2920; J3370; J7030; J7608

== ENCOUNTER 2024-11-17 23:06 | Inpatient (IN) | payer MEDICARE, OTHER ==
[~2024-11-17] VITALS: Ht 175.3 cm; Wt 81.9 kg
[2024-11-18 00:51] LABS: HEMATOCRIT. 34.3 % (42.0-52.0); HEMOGLOBIN. 10.1 g/dL (14.0-18.0); MEAN CORPUSCULAR HEMOGLOBIN 23.3 pg (28.0-32.0); MEAN CORPUSCULAR HGB CONC 29.6 g/dL (31.0-37.0); MEAN CORPUSCULAR VOLUME 78.6 fL (80.0-94.0); MEAN PLATELET VOLUME 7.9 fl (7.4-10.4); PLATELET 211 x1000/uL (130-400); RED BLOOD CELL COUNT 4.36 mill/uL (4.7-6.1); RED CELL DISTRIBUTION WIDTH 17.4 % (11.6-14.6); WHITE BLOOD COUNT 5.9 x1000/uL (4.5-11.0)
[2024-11-18 00:56] LABS: CHLORIDE 100 mEq/L (98-107); POTASSIUM 3.5 mEq/L (3.5-5.1); SODIUM 153 mEq/L (136-145)
[2024-11-18] MEDS: SODIUM CHLORIDE 0.9% (SEPSIS BOLUS) IV ONE (00:56)
[2024-11-18 00:57] LABS: CALCIUM 9.9 mg/dL (8.7-10.4)
[2024-11-18 01:01] LABS: INR 1.2; PROTHROMBIN TIME 12.8 sec (9.6-11.0)
[2024-11-18 01:02] LABS: GLUCOSE 111 mg/dL (70-105); UREA NITROGEN BLOOD 8 mg/dL (9-23)
[2024-11-18 01:03] LABS: ALANINE AMINOTRANSFERASE 19 IU/L (10-49)
[2024-11-18] MEDS: PIPERACILLIN/TAZO 3.375G/50ML 50 ML IV ONE (01:03)
[2024-11-18 01:04] LABS: ALBUMIN 3.3 g/dL (3.2-4.8); ASPARTATE AMINOTRANSFERASE 26 IU/L (<34); BILIRUBIN DIRECT 0.1 mg/dL (<=3.0); BILIRUBIN TOTAL 0.3 mg/dL (0.1-1.0); PROTEIN TOTAL 6.4 g/dL (6.0-8.3); TROPONIN I HIGH SENSITIVITY 7 ng/L (3.0-53)
[2024-11-18 01:08] LABS: DIFFERENTIAL COMMENT 1
[2024-11-18 01:09] LABS: CARBON DIOXIDE > 40 mEq/L (21-32)
[2024-11-18] MEDS: VANCOMYCIN 1G PREMIX 200 ML IV ONE (01:40)
[2024-11-18 03:53] LABS: TROPONIN I HIGH SENSITIVITY 9 ng/L (3.0-53)
[2024-11-18 06:14] LABS: BG BASE EXCESS 14.7 mmol/L (-2.0-3.0); BG CARBOXYHEMOGLOBIN 0.8 % (0.5-1.5); BG DEOXYHEMOGLOBIN 7.9 % (0.0-5.0); BG FRACTION INSPIRED OXYGEN 28; BG METHEMOGLOBIN 0.2 % (0.5-1.5); BG OXYHEMOGLOBIN 91.1 % (94.0-98.0); BG PCO2 69.5 mmHg (35.0-48.0); BG PH 7.399 (7.350-7.450); BG PO2 58.9 mmHg (83.0-108.0); BG SAMPLE SITE LEFT RADIAL; BG TOTAL HEMOGLOBIN 10.3 g/dL (13.5-17.5); BG VENT MODE NASAL CANNULA
[2024-11-18 07:36] LABS: MICROCYTOSIS 1+; PLATELET ESTIMATE NORMAL
[2024-11-18 07:37] LABS: HYPOCHROMASIA 1+
[2024-11-18 17:09] LABS: CLARITY URINE CLEAR (CLEAR); COLOR URINE YELLOW (YELLOW); GLUCOSE URINE NEGATIVE (NEGATIVE); KETONES URINE NEGATIVE (NEGATIVE); LEUKOCYTE ESTERASE URINE 3+ (NEGATIVE); NITRITE URINE NEGATIVE (NEGATIVE); OCCULT BLOOD URINE 1+ (NEGATIVE); PH URINE >=9.0 (4.5-8.0); PROTEIN URINE 1+ (NEGATIVE); SPECIFIC GRAVITY URINE 1.004 (1.005-1.030)
[2024-11-18] MEDS: PIPERACILLIN/TAZO 3.375G/50ML 50 ML IV SCH (17:45)
[2024-11-18 17:46] LABS: BACTERIA URINE 2+; SQUAMOUS EPITHELIAL CELL URINE FEW /lpf (RARE/1+); WBC URINE 15-25 /hpf (0-2)
[2024-11-18] MEDS: DOXYCYCLINE 100MG/100ML 100 ML IV SCH (18:12)
[2024-11-18 21:14] VITALS: BP 117/73; PULSE 90; RESP 24; TEMP 36.4736
[2024-11-18 22:00] VITALS: BP 109/74; PULSE 90; RESP 25; O2SAT 98
[2024-11-19] VITALS (11 sets, daily range): BP systolic 88–144; BP diastolic 59–96; PULSE 91–114; RESP 20–31; TEMP 36.3918–36.89184; O2SAT 93–98
[2024-11-19] MEDS: SODIUM CHLORIDE 0.9% 1,000 ML IV ONE (05:29)
[2024-11-19] MEDS: DIGOXIN 500MCG/2ML AMP IV NR (05:32)
[2024-11-19] MEDS: ENOXAPARIN 60MG/0.6ML SYR SUBCUT SCH (05:45)
[2024-11-19] MEDS ORDERED: PIPERACILLIN/TAZO 3.375G/100ML 100 ML IV SCH (06:00)
[2024-11-19] MEDS: SODIUM CHLORIDE 0.9% 1,000 ML IV SCH (07:31)
[2024-11-19] MEDS: PIPERACILLIN/TAZO 3.375G/100ML 100 ML IV SCH (07:31)
[2024-11-19] MEDS ORDERED: IPRATROPIUM BROMIDE (0.02%) 0.5MG/2.5ML NEB HHN PRN (08:15)
[2024-11-19] MEDS: DOCUSATE SODIUM 100MG CAPSULE PO SCH (09:00)
[2024-11-19] MEDS: LACTULOSE 20G/30ML UDC PO SCH (09:00)
[2024-11-19] MEDS: DEXT 5%/0.45% NACL 1000ML 1,000 ML IV SCH (09:00)
[2024-11-19] MEDS: DOXYCYCLINE 100MG/100ML 100 ML IV SCH (09:34)
[2024-11-19 09:43] LABS: BG BASE EXCESS 7.7 mmol/L (-2.0-3.0); BG FRACTION INSPIRED OXYGEN 32; BG HCO3 ACT 34.5 mmol/L (21.0-28.0); BG PCO2 56.4 mmHg (35.0-48.0); BG PH 7.404 (7.350-7.450); BG SAMPLE SITE RIGHT BRACHIAL; BG VENT MODE NASAL CANNULA
[2024-11-19 09:45] LABS: BG CARBOXYHEMOGLOBIN 0.8 % (0.5-1.5); BG DEOXYHEMOGLOBIN 5.4 % (0.0-5.0); BG METHEMOGLOBIN 0.3 % (0.5-1.5); BG OXYGEN SATURATION 94.5 % (94.0-98.0); BG OXYHEMOGLOBIN 93.5 % (94.0-98.0)
[2024-11-19 13:32] LABS: CHLORIDE 107 mEq/L (98-107); SODIUM 149 mEq/L (136-145)
[2024-11-19 13:33] LABS: CARBON DIOXIDE 37 mEq/L (21-32)
[2024-11-19 13:34] LABS: CALCIUM 8.7 mg/dL (8.7-10.4)
[2024-11-19 13:38] LABS: CREATININE 1.1 mg/dL (0.6-1.3); UREA NITROGEN BLOOD 8 mg/dL (9-23)
[2024-11-19 13:41] LABS: GLUCOSE 305 mg/dL (70-105); POTASSIUM 2.7 mEq/L (3.5-5.1)
[2024-11-19 13:42] LABS: AMMONIA < 17 uMol/L (<32)
[2024-11-19 13:43] LABS: THYROID STIMULATING HORMONE 0.82 uIU/mL (0.55-4.78)
[2024-11-19 13:44] LABS: VITAMIN B12 SERUM 625 pg/mL (211-911)
[2024-11-19] MEDS ORDERED: POTASSIUM CHLORIDE 40 MEQ in DEXT 5% WATER 230 ML IV ONE (13:45)
[2024-11-19 13:46] LABS: *AMPHETAMINES SCREEN URINE NEGATIVE (NEGATIVE); *BARBITURATES SCREEN URINE NEGATIVE (NEGATIVE); *BENZODIAZEPINES SCREEN URINE NEGATIVE (NEGATIVE); *COCAINE SCREEN URINE NEGATIVE (NEGATIVE); CANNABINOID URINE SCREEN NEGATIVE (NEGATIVE); ECSTASY MDMA SCREEN URINE NEGATIVE (NEGATIVE); METHADONE URINE SCREEN NEGATIVE (NEGATIVE); OPIATES URINE SCREEN NEGATIVE (NEGATIVE); PHENCYCLIDINE URINE SCREEN NEGATIVE (NEGATIVE)
[2024-11-19] MEDS: METHYLPREDNISOLONE SOD SUCC 40MG/ML (ACT-O-VIAL) IV SCH (14:44)
[2024-11-19] MEDS: POTASSIUM CHLORIDE 20MEQ/PACKET PO NR (14:45)
[2024-11-19] MEDS: KCL 20MEQ/100ML X 2 FOR TOTAL KCL 40MEQ/200ML IV SCH (14:45)
[2024-11-19] MEDS: MAGNESIUM 2 G PREMIX 50 ML IV NR (15:53)
[2024-11-19] MEDS ORDERED: IPRATROPIUM BROMIDE (0.02%) 0.5MG/2.5ML NEB HHN SCH (17:45)
[2024-11-19] MEDS: ENOXAPARIN 80MG/0.8ML SYR SUBCUT SCH (18:03)
== END 2024-11-19 21:00 | disposition short-term general hospital (02) | DRG 871 ==
LOC: ER 23:06 → EDBEDREQ 11-18 03:02 → EDBEDREQTM 11-18 03:02 → EDBEDREQSVC 11-18 07:29 → 5EST 11-18 20:42
PROVIDERS: ADMIT Internal Medicine; ATTEND Internal Medicine
DX: A41.9 Sepsis, unspecified organism (principal); G93.41 Metabolic encephalopathy; J18.9 Pneumonia, unspecified organism; J96.01 Acute respiratory failure with hypoxia; E87.0 Hyperosmolality and hypernatremia; E87.20 Acidosis, unspecified; J44.0 Chronic obstructive pulmonary disease with (acute) lower respiratory infection; Z20.822 Contact with and (suspected) exposure to COVID-19; D63.8 Anemia in other chronic diseases classified elsewhere; E87.6 Hypokalemia; I11.0 Hypertensive heart disease with heart failure; I50.9 Heart failure, unspecified; D50.9 Iron deficiency anemia, unspecified; I48.0 Paroxysmal atrial fibrillation; K56.41 Fecal impaction; R62.7 Adult failure to thrive; Z68.30 Body mass index [BMI] 30.0-30.9, adult; Z79.01 Long term (current) use of anticoagulants; Z91.148 Patient's other noncompliance with medication regimen for other reason; G47.33 Obstructive sleep apnea (adult) (pediatric); Z91.199 Patient's noncompliance with other medical treatment and regimen due to unspecified reason; Z99.81 Dependence on supplemental oxygen
CPT/HCPCS: 36415; 36600; 71045; 74176; 80048; 80076; 80305; 81003; 82140; 82375; 82607; 82805; 83036; 83605; 83880; 84145; 84443; 84484; 85025; 87420; 87426; 87804; 93005; 96367; 99291; A4606; J1160; J1650; J2543; J2920; J3370; J3475; J3480; J3490; J7030

== ENCOUNTER 2024-12-18 21:28 | Inpatient (IN) | payer MEDICARE, OTHER ==
[~2024-12-18] VITALS: Ht 175.3 cm; Wt 59.4 kg
[~2024-12-18 21:28] MED LIST changes: -AMI2 PO; -HALO2ORA3 MT; -HYOS-16 SL; -ROFL500T9 PO
[2024-12-18 22:37] LABS: BASOPHILS % 0.1 % (0.0-2.0); DIFFERENTIAL COMMENT 0; HEMATOCRIT. 32.2 % (42.0-52.0); LYMPHOCYTES % 19.7 % (20.0-50.0); MEAN CORPUSCULAR HEMOGLOBIN 24.3 pg (28.0-32.0); MEAN CORPUSCULAR HGB CONC 31.2 g/dL (31.0-37.0); MEAN CORPUSCULAR VOLUME 77.8 fL (80.0-94.0); MEAN PLATELET VOLUME 8.9 fl (7.4-10.4); NEUTROPHILS % 73.2 % (40.0-76.0); PLATELET 129 x1000/uL (130-400); RED BLOOD CELL COUNT 4.14 mill/uL (4.7-6.1); RED CELL DISTRIBUTION WIDTH 17.3 % (11.6-14.6); WHITE BLOOD COUNT 4.2 x1000/uL (4.5-11.0)
[2024-12-18 22:43] LABS: CHLORIDE 97 mEq/L (98-107); POTASSIUM 4.3 mEq/L (3.5-5.1); SODIUM 139 mEq/L (136-145)
[2024-12-18 22:44] LABS: CALCIUM 9.2 mg/dL (8.7-10.4)
[2024-12-18 22:46] LABS: CARBON DIOXIDE > 40 mEq/L (21-32)
[2024-12-18 22:49] LABS: CREATININE 0.8 mg/dL (0.6-1.3); GLUCOSE 172 mg/dL (70-105); UREA NITROGEN BLOOD 14 mg/dL (9-23)
[2024-12-18 22:51] LABS: TROPONIN I HIGH SENSITIVITY < 4 ng/L (3.0-53)
[2024-12-19 00:06] LABS: BG CARBOXYHEMOGLOBIN 0.5 % (0.5-1.5); BG DEOXYHEMOGLOBIN 15.4 % (0.0-5.0); BG HCO3 ACT 36.7 mmol/L (21.0-28.0); BG METHEMOGLOBIN 0.1 % (0.5-1.5); BG OXYGEN SATURATION 84.5 % (94.0-98.0); BG PCO2 69.3 mmHg (35.0-48.0); BG PH 7.342 (7.350-7.450); BG SAMPLE SITE RIGHT RADIAL; BG TOTAL HEMOGLOBIN 10.7 g/dL (13.5-17.5)
[2024-12-19] MEDS: IPRATROPIUM/ALBUTEROL 0.5-3(2.5)MG/3ML NEB HHN ONE (00:55)
[2024-12-19 00:59] VITALS: RESP 14
[2024-12-19 01:54] LABS: TROPONIN I HIGH SENSITIVITY < 4 ng/L (3.0-53)
[2024-12-19] MEDS: METHYLPREDNISOLONE SOD SUCC 125MG/2ML (ACT-O-VIAL) IV ONE (03:23)
[2024-12-19] MEDS: AZITHROMYCIN 500MG/250ML 250 ML IV SCH (03:23)
[2024-12-19] MEDS: METHYLPREDNISOLONE SOD SUCC 125MG/2ML (ACT-O-VIAL) IV NR ×2 (03:23→03:27)
[2024-12-19 08:39] VITALS: O2SAT 98
[2024-12-19 21:45] VITALS: BP 118/59; PULSE 72; RESP 18; TEMP 35.8; O2SAT 100
[2024-12-19] MEDS ORDERED: ACETAMINOPHEN 325MG TABLET PO PRN (21:45)
[2024-12-19] MEDS ORDERED: CLONIDINE 0.1MG TABLET PO PRN (21:45)
[2024-12-19] MEDS ORDERED: ONDANSETRON HCL 4MG/2ML INJ IV PRN (21:45)
[2024-12-19] MEDS ORDERED: MAGNESIUM/ALUMINUM HYDROXIDE/SIMETHICONE 30ML UDC PO PRN (21:45)
[2024-12-19] MEDS ORDERED: IPRATROPIUM/ALBUTEROL 0.5-3(2.5)MG/3ML NEB NEB PRN (21:45)
[2024-12-19 22:41] VITALS: BP 118/59; PULSE 72; RESP 18; TEMP 36.4
[2024-12-19] MEDS: METHYLPREDNISOLONE SOD SUCC 40MG/ML (ACT-O-VIAL) IV SCH (23:36)
[2024-12-19] MEDS: SODIUM CHLORIDE 0.9% 3ML FLUSH IVF SCH (23:37)
[2024-12-20] VITALS (9 sets, daily range): BP systolic 100–151; BP diastolic 51–60; PULSE 64–92; RESP 18–20; TEMP 36.2–36.6; O2SAT 95–100
[2024-12-20 02:21] LABS: CLARITY URINE CLEAR (CLEAR); COLOR URINE YELLOW (YELLOW); GLUCOSE URINE NEGATIVE (NEGATIVE); KETONES URINE NEGATIVE (NEGATIVE); LEUKOCYTE ESTERASE URINE NEGATIVE (NEGATIVE); NITRITE URINE NEGATIVE (NEGATIVE); OCCULT BLOOD URINE NEGATIVE (NEGATIVE); PH URINE 5.5 (4.5-8.0); PROTEIN URINE NEGATIVE (NEGATIVE); SPECIFIC GRAVITY URINE 1.016 (1.005-1.030); UROBILINOGEN URINE 0.2 E.U./dL (0.2-1.0)
[2024-12-20] MEDS: GUAIFENESIN 200MG/10ML SUGAR FREE UDC PO PRN (08:51)
[2024-12-20] MEDS: APIXABAN 2.5 MG TABLET PO SCH (08:51)
[2024-12-20] MEDS: DIPHENHYDRAMINE 50MG/ML VIAL IV PRN (08:52)
[2024-12-20] MEDS: IPRATROPIUM/ALBUTEROL 0.5-3(2.5)MG/3ML NEB HHN SCH (08:59)
[2024-12-20] MEDS: ATORVASTATIN CALCIUM 20MG TABLET PO SCH (21:15)
[2024-12-21] VITALS (10 sets, daily range): BP systolic 101–119; BP diastolic 56–64; PULSE 69–102; RESP 18–20; TEMP 36.1–37.1; O2SAT 96–100
[2024-12-21 09:19] LABS: PREALBUMIN 19.4 mg/dl (10.0-40.0)
[2024-12-21] MEDS: INFLUENZA VACCINE 05/PF 0.5 ML SYRINGE IM ONE (09:45)
[2024-12-21] MEDS: PNEUMOCOCCAL 20-VAL CONJ-DIP CRM 0.5ML IM ONE (09:45)
[2024-12-22] VITALS (10 sets, daily range): BP systolic 104–133; BP diastolic 64–73; PULSE 67–79; RESP 14–20; TEMP 36.3–36.8; O2SAT 95–100
[2024-12-22] MEDS: MAGNESIUM HYDROXIDE 400MG/5ML 30ML UDC PO NR (18:32)
[2024-12-22] MEDS: ACETAMINOPHEN 325MG TABLET PO PRN (20:39)
[2024-12-22] MEDS: SENNOSIDES 8.6MG TABLET PO SCH (21:00)
[2024-12-23] VITALS (10 sets, daily range): BP systolic 109–126; BP diastolic 61–70; PULSE 64–87; RESP 14–20; TEMP 36.3–36.7; O2SAT 96–99
[2024-12-23] MEDS: DOCUSATE SODIUM 250MG CAPSULE PO SCH (09:15)
[2024-12-24] VITALS (9 sets, daily range): BP systolic 107–120; BP diastolic 52–71; PULSE 69–88; RESP 16–18; TEMP 36.2–37.1; O2SAT 95–100
== END 2024-12-24 19:40 | disposition home health service (06) | DRG 70 ==
LOC: ER 21:28 → EDBEDREQSVC 12-19 20:33 → 7WST 12-19 21:39
PROVIDERS: ADMIT Internal Medicine; ATTEND Internal Medicine
PROC: 5A09357 Assistance with Respiratory Ventilation, Less than 24 Consecutive Hours, Continuous Positive Airway Pressure (ICD-10-PCS; 2024-12-18)
PROC: 5A09357 Assistance with Respiratory Ventilation, Less than 24 Consecutive Hours, Continuous Positive Airway Pressure (ICD-10-PCS; principal; 2024-12-19)
DX: G93.41 Metabolic encephalopathy (principal); J96.21 Acute and chronic respiratory failure with hypoxia; L89.153 Pressure ulcer of sacral region, stage 3; J44.1 Chronic obstructive pulmonary disease with (acute) exacerbation; I11.0 Hypertensive heart disease with heart failure; I48.0 Paroxysmal atrial fibrillation; I50.9 Heart failure, unspecified; Z87.01 Personal history of pneumonia (recurrent)
CPT/HCPCS: 36415; 36600; 71045; 80048; 81003; 82040; 82375; 82805; 83880; 84134; 84484; 85025; 93005; 94070; 94640; 94660; 94664; 94760; 96365; 96375; 97162; 98960; 99291; J0456; J1200; J2919; J2920

== ENCOUNTER 2025-02-13 09:40 | Inpatient (IN) | payer OTHER, MEDICARE ==
[~2025-02-13] VITALS: Ht 175.3 cm; Wt 61.7 kg
[2025-02-13 10:15] LABS: BASOPHILS % 0.4 % (0.0-2.0); DIFFERENTIAL COMMENT 0; EOSINOPHILS % 2.6 % (0.0-5.0); HEMATOCRIT. 31.4 % (42.0-52.0); HEMOGLOBIN. 9.4 g/dL (14.0-18.0); LYMPHOCYTES % 26.7 % (20.0-50.0); MEAN CORPUSCULAR HEMOGLOBIN 23.6 pg (28.0-32.0); MEAN CORPUSCULAR VOLUME 78.7 fL (80.0-94.0); MEAN PLATELET VOLUME 8.9 fl (7.4-10.4); MONOCYTES % 10.4 % (2.0-8.0); NEUTROPHILS % 59.9 % (40.0-76.0); PLATELET 105 x1000/uL (130-400); RED BLOOD CELL COUNT 3.99 mill/uL (4.7-6.1); RED CELL DISTRIBUTION WIDTH 16.5 % (11.6-14.6); WHITE BLOOD COUNT 5.7 x1000/uL (4.5-11.0)
[2025-02-13 10:24] LABS: CHLORIDE 97 mEq/L (98-107); POTASSIUM 4.1 mEq/L (3.5-5.1); SODIUM 145 mEq/L (136-145)
[2025-02-13 10:26] LABS: INR 1.2; PROTHROMBIN TIME 12.6 sec (9.6-11.0)
[2025-02-13 10:30] LABS: CREATININE 0.8 mg/dL (0.6-1.3); GLUCOSE 67 mg/dL (70-105)
[2025-02-13 10:31] LABS: UREA NITROGEN BLOOD 8 mg/dL (9-23)
[2025-02-13 10:32] LABS: ALANINE AMINOTRANSFERASE 21 IU/L (10-49); ALBUMIN 3.5 g/dL (3.2-4.8); ASPARTATE AMINOTRANSFERASE 30 IU/L (<34)
[2025-02-13 10:33] LABS: BILIRUBIN DIRECT 0.1 mg/dL (<=3.0); BILIRUBIN TOTAL 0.3 mg/dL (0.1-1.0); PROTEIN TOTAL 6.5 g/dL (6.0-8.3)
[2025-02-13 10:43] LABS: CARBON DIOXIDE 40 mEq/L (21-32)
[2025-02-13 11:24] LABS: CALCIUM 10.3 mg/dL (8.7-10.4)
[2025-02-13 12:37] LABS: BG BASE EXCESS 9.4 mmol/L (-2.0-3.0); BG CARBOXYHEMOGLOBIN 1.2 % (0.5-1.5); BG DEOXYHEMOGLOBIN 1.6 % (0.0-5.0); BG FRACTION INSPIRED OXYGEN 32; BG HCO3 ACT 37.9 mmol/L (21.0-28.0); BG METHEMOGLOBIN 0.1 % (0.5-1.5); BG OXYGEN SATURATION 98.4 % (94.0-98.0); BG OXYHEMOGLOBIN 97.1 % (94.0-98.0); BG PCO2 79.8 mmHg (35.0-48.0); BG PH 7.295 (7.350-7.450); BG PO2 112.8 mmHg (83.0-108.0); BG SAMPLE SITE RIGHT BRACHIAL; BG TOTAL HEMOGLOBIN 9.6 g/dL (13.5-17.5); BG VENT MODE NASAL CANNULA
[2025-02-13] MEDS: LACTULOSE 20G/30ML UDC PO ONE (13:41)
[2025-02-13 14:41] LABS: CLARITY URINE CLEAR (CLEAR); COLOR URINE YELLOW (YELLOW); GLUCOSE URINE NEGATIVE (NEGATIVE); KETONES URINE 1+ (NEGATIVE); LEUKOCYTE ESTERASE URINE NEGATIVE (NEGATIVE); NITRITE URINE NEGATIVE (NEGATIVE); OCCULT BLOOD URINE NEGATIVE (NEGATIVE); PH URINE 5.5 (4.5-8.0); PROTEIN URINE TRACE (NEGATIVE); SPECIFIC GRAVITY URINE 1.012 (1.005-1.030)
[2025-02-13 15:10] LABS: MUCUS URINE TRACE /lpf (NONE/TRACE); SQUAMOUS EPITHELIAL CELL URINE 1+ /lpf (RARE/1+)
[2025-02-13 15:11] LABS: BACTERIA URINE TRACE; WBC URINE 0-2 /hpf (0-2)
[2025-02-13 15:13] LABS: RBC URINE 0-2 /hpf (0-2)
[2025-02-13 16:30] VITALS: BP_SYST 109; BP_SYST 127; BP_DIAS 68; BP_DIAS 69; PULSE 74; PULSE 79; RESP 16; RESP 19; TEMP 36.1
[2025-02-13 18:00] VITALS: BP 120/68; PULSE 77; RESP 20
[2025-02-13] MEDS ORDERED: ACETAMINOPHEN 325MG TABLET PO PRN (20:15)
[2025-02-13] MEDS ORDERED: ONDANSETRON HCL 4MG TABLET PO PRN (20:15)
[2025-02-13] MEDS: GUAIFENESIN 600MG ER TABLET PO SCH (21:09)
[2025-02-13] MEDS: LACTULOSE 20G/30ML UDC PO NR (21:09)
[2025-02-14] VITALS (11 sets, daily range): BP systolic 84–126; BP diastolic 58–67; PULSE 66–92; RESP 15–23; TEMP 36.2–36.7; O2SAT 97–100
[2025-02-14] MEDS: IPRATROPIUM/ALBUTEROL 0.5-3(2.5)MG/3ML NEB HHN SCH (08:58)
[2025-02-14] MEDS: NA PHOS,M-B/NA PHOS,DI-BA ENEMA 118ML PR NR (12:00)
[2025-02-14] MEDS: SORBITOL 70% SOLN 30ML PO NR (12:46)
[2025-02-14] MEDS: LACTULOSE 20G/30ML UDC PO PRN (12:53)
[2025-02-14] MEDS ORDERED: PNEUMOC 13-VAL CONJ-DIP CRM/PF 0.5 ML DISP.SYRIN IM ONE (13:30)
[2025-02-14] MEDS: PNEUMOCOCCAL 20-VAL CONJ-DIP CRM 0.5ML IM ONE (16:03)
[2025-02-14] MEDS: ENOXAPARIN 40MG/0.4ML SYR SUBCUT SCH (16:04)
[2025-02-14] MEDS: TERAZOSIN HCL 1MG CAPSULE PO SCH (21:00)
[2025-02-14 21:24] LABS: HEMATOCRIT 29.4 % (42.0-52.0)
[2025-02-15] VITALS (16 sets, daily range): BP systolic 93–108; BP diastolic 58–73; PULSE 78–105; RESP 16–28; TEMP 36.6–37.2; O2SAT 96–100
[2025-02-15] MEDS ORDERED: SODIUM CHLORIDE 0.9% 500 ML IV NR (05:30)
[2025-02-15] MEDS: DEXTROSE 50% WATER 50ML SYRINGE IV NR (05:34)
[2025-02-15 05:51] LABS: BG BASE EXCESS 11.6 mmol/L (-2.0-3.0); BG CARBOXYHEMOGLOBIN 1.3 % (0.5-1.5); BG DEOXYHEMOGLOBIN 2.4 % (0.0-5.0); BG FRACTION INSPIRED OXYGEN 28; BG METHEMOGLOBIN 0.2 % (0.5-1.5); BG OXYGEN SATURATION 97.6 % (94.0-98.0); BG OXYHEMOGLOBIN 96.1 % (94.0-98.0); BG PH 7.352 (7.350-7.450); BG PO2 96.1 mmHg (83.0-108.0); BG SAMPLE SITE RIGHT BRACHIAL; BG TOTAL HEMOGLOBIN 8.8 g/dL (13.5-17.5); BG VENT MODE NASAL CANNULA
[2025-02-15 06:26] LABS: HEMATOCRIT 30.9 % (42.0-52.0); HEMOGLOBIN 9.4 g/dL (14.0-18.0); MEAN CORPUSCULAR HEMOGLOBIN 23.7 pg (28.0-32.0); MEAN CORPUSCULAR HGB CONC 30.6 g/dL (31.0-37.0); MEAN CORPUSCULAR VOLUME 77.3 fL (80.0-94.0); PLATELET 102 x1000/uL (130-400); RED BLOOD CELL COUNT 3.99 mill/uL (4.7-6.1); RED CELL DISTRIBUTION WIDTH 15.8 % (11.6-14.6); WHITE BLOOD COUNT 5.4 x1000/uL (4.5-11.0)
[2025-02-15 09:25] LABS: BG BASE EXCESS 18.3 mmol/L (-2.0-3.0); BG CARBOXYHEMOGLOBIN 1.1 % (0.5-1.5); BG DEOXYHEMOGLOBIN 5.4 % (0.0-5.0); BG FRACTION INSPIRED OXYGEN 30; BG HCO3 ACT 45.4 mmol/L (21.0-28.0); BG METHEMOGLOBIN 0.1 % (0.5-1.5); BG OXYGEN SATURATION 94.5 % (94.0-98.0); BG OXYHEMOGLOBIN 93.4 % (94.0-98.0); BG PH 7.424 (7.350-7.450); BG PO2 66.1 mmHg (83.0-108.0); BG SAMPLE SITE RIGHT RADIAL; BG TOTAL HEMOGLOBIN 9.6 g/dL (13.5-17.5); BG TOTAL RESPIRATORY RATE 20 b/min; BG VENT MODE MASK - BIPAP
[2025-02-15] MEDS: APIXABAN 5 MG TABLET PO SCH (14:15)
[2025-02-16] VITALS (11 sets, daily range): BP systolic 93–107; BP diastolic 55–69; PULSE 74–92; RESP 19–30; TEMP 36.7–36.9; O2SAT 96–100
[2025-02-16 09:08] LABS: BG BASE EXCESS 16.7 mmol/L (-2.0-3.0); BG DEOXYHEMOGLOBIN 0.3 % (0.0-5.0); BG FRACTION INSPIRED OXYGEN 32; BG HCO3 ACT 44.6 mmol/L (21.0-28.0); BG METHEMOGLOBIN 0.3 % (0.5-1.5); BG OXYGEN SATURATION 99.7 % (94.0-98.0); BG OXYHEMOGLOBIN 98.4 % (94.0-98.0); BG PCO2 80.2 mmHg (35.0-48.0); BG PH 7.363 (7.350-7.450); BG PO2 248.7 mmHg (83.0-108.0); BG SAMPLE SITE RIGHT BRACHIAL; BG TOTAL HEMOGLOBIN 8.7 g/dL (13.5-17.5); BG VENT MODE NASAL CANNULA
== END 2025-02-16 18:36 | disposition short-term general hospital (02) | DRG 388 ==
LOC: ER 09:56 → 5EST 13:08 → EDBEDREQ 13:10 → EDBEDREQSVC 13:10 → EDBEDREQTM 13:10
PROVIDERS: ADMIT Internal Medicine; ATTEND Internal Medicine
PROC: 5A09357 Assistance with Respiratory Ventilation, Less than 24 Consecutive Hours, Continuous Positive Airway Pressure (ICD-10-PCS; principal; 2025-02-15)
DX: K56.41 Fecal impaction (principal); J96.22 Acute and chronic respiratory failure with hypercapnia; E87.29 Other acidosis; R04.2 Hemoptysis; I50.9 Heart failure, unspecified; I11.0 Hypertensive heart disease with heart failure; J44.9 Chronic obstructive pulmonary disease, unspecified; E16.2 Hypoglycemia, unspecified; I48.91 Unspecified atrial fibrillation; E78.5 Hyperlipidemia, unspecified; G47.33 Obstructive sleep apnea (adult) (pediatric); D50.9 Iron deficiency anemia, unspecified; Z99.81 Dependence on supplemental oxygen; Z87.891 Personal history of nicotine dependence; Z79.01 Long term (current) use of anticoagulants
CPT/HCPCS: 36415; 36600; 71045; 74176; 80048; 80076; 81003; 82375; 82805; 82962; 85014; 85018; 85025; 85027; 86850; 86900; 90670; 90732; 93005; 94070; 94640; 94664; 98960; 99291; A4606; C1893; J1650

== ENCOUNTER 2025-04-27 15:55 | Emergency (ER) | payer OTHER ==
[~2025-04-27] VITALS: Ht 177.8 cm; Wt 73.0 kg
[2025-04-27] MEDS: METHYLPREDNISOLONE SOD SUCC 125MG/2ML (ACT-O-VIAL) IV STA (17:05)
[2025-04-27] MEDS: AZITHROMYCIN 500MG/250ML 250 ML IV ONE (17:05)
[2025-04-27] MEDS: SODIUM CHLORIDE 0.9% 250 ML IV ONE (17:05)
[2025-04-27 17:20] LABS: BASOPHILS % 0.1 % (0.0-2.0); DIFFERENTIAL COMMENT 0; HEMATOCRIT. 30.6 % (42.0-52.0); HEMOGLOBIN. 9.9 g/dL (14.0-18.0); LYMPHOCYTES % 8.5 % (20.0-50.0); MEAN CORPUSCULAR HEMOGLOBIN 24.6 pg (28.0-32.0); MEAN CORPUSCULAR HGB CONC 32.5 g/dL (31.0-37.0); MEAN CORPUSCULAR VOLUME 75.8 fL (80.0-94.0); MEAN PLATELET VOLUME 9.4 fl (7.4-10.4); MONOCYTES % 4.1 % (2.0-8.0); NEUTROPHILS % 87.3 % (40.0-76.0); PLATELET 99 x1000/uL (130-400); RED BLOOD CELL COUNT 4.04 mill/uL (4.7-6.1); RED CELL DISTRIBUTION WIDTH 18.4 % (11.6-14.6); WHITE BLOOD COUNT 9.1 x1000/uL (4.5-11.0)
[2025-04-27 17:26] LABS: CARBON DIOXIDE 33 mEq/L (21-32); CHLORIDE 102 mEq/L (98-107); POTASSIUM 3.7 mEq/L (3.5-5.1); SODIUM 142 mEq/L (136-145)
[2025-04-27 17:27] LABS: CALCIUM 9.2 mg/dL (8.7-10.4)
[2025-04-27 17:30] LABS: PROTHROMBIN TIME 11.2 sec (9.6-11.0)
[2025-04-27 17:32] LABS: CREATININE 0.8 mg/dL (0.6-1.3); GLUCOSE 141 mg/dL (70-105); UREA NITROGEN BLOOD 15 mg/dL (9-23)
[2025-04-27 17:33] LABS: ALANINE AMINOTRANSFERASE 31 IU/L (10-49); ALBUMIN 4.1 g/dL (3.2-4.8); ASPARTATE AMINOTRANSFERASE 26 IU/L (<34)
[2025-04-27 17:34] LABS: BILIRUBIN DIRECT 0.2 mg/dL (<=3.0); BILIRUBIN TOTAL 0.5 mg/dL (0.1-1.0); PROTEIN TOTAL 6.5 g/dL (6.0-8.3); TROPONIN I HIGH SENSITIVITY 8 ng/L (3.0-53)
[2025-04-27] MEDS: MAGNESIUM 2 G PREMIX 50 ML IV STA (18:21)
[2025-04-27 19:50] VITALS: PULSE 90; RESP 21; O2SAT 96
[2025-04-27] MEDS: ALBUTEROL (0.083%) 2.5MG/3ML NEB HHN STA (19:50)
[2025-04-27] MEDS: ALBUTEROL (0.083%) 2.5MG/3ML NEB HHN ONE (19:50)
[2025-04-27] MEDS: IPRATROPIUM BROMIDE (0.02%) 0.5MG/2.5ML NEB HHN STA (19:50)
[2025-04-27 20:06] VITALS: BP 119/68; PULSE 98; RESP 16; TEMP 36.8; O2SAT 96
== END 2025-04-27 20:45 | disposition short-term general hospital (02) ==
LOC: ER 15:55 → CANBEDREQ 19:13 → ER 20:45
DX: A41.9 Sepsis, unspecified organism (principal); R65.20 Severe sepsis without septic shock; J44.1 Chronic obstructive pulmonary disease with (acute) exacerbation; D69.6 Thrombocytopenia, unspecified; I11.0 Hypertensive heart disease with heart failure; I50.9 Heart failure, unspecified; Z79.899 Other long term (current) drug therapy
CPT/HCPCS: 99291; 96365; 96367; 96375; 80076; 80048; 83880; 83605; 83735; 85025; 85610; 87040; 84484; 36415; 84145; 71045; 94640; 93005; 98960; J2919; J0456; J3475; J7050; 94070; 94760

== ENCOUNTER 2025-05-13 12:41 | Inpatient (IN) | payer OTHER, MEDICARE ==
[~2025-05-13] VITALS: Ht 165.1 cm; Wt 53.7 kg
[2025-05-13] VITALS (8 sets, daily range): BP systolic 111–129; BP diastolic 70–78; PULSE 81–97; RESP 16–20; TEMP 36.6; O2SAT 96–98
[2025-05-13] MEDS: IPRATROPIUM BROMIDE (0.02%) 0.5MG/2.5ML NEB HHN STA (13:00)
[2025-05-13] MEDS: ALBUTEROL (0.083%) 2.5MG/3ML NEB HHN STA (13:00)
[2025-05-13] MEDS: AZITHROMYCIN 500MG/250ML 250 ML IV ONE (13:18)
[2025-05-13] MEDS: METHYLPREDNISOLONE SOD SUCC 125MG/2ML (ACT-O-VIAL) IV STA (13:18)
[2025-05-13 13:29] LABS: BG BASE EXCESS 14.2 mmol/L (-2.0-3.0); BG CARBOXYHEMOGLOBIN 0.7 % (0.5-1.5); BG DEOXYHEMOGLOBIN 0.3 % (0.0-5.0); BG FLOW(L/min) 6.00 L/min; BG FRACTION INSPIRED OXYGEN 40; BG HCO3 ACT 47.0 mmol/L (21.0-28.0); BG METHEMOGLOBIN 0.4 % (0.5-1.5); BG OXYGEN SATURATION 99.7 % (94.0-98.0); BG OXYHEMOGLOBIN 98.6 % (94.0-98.0); BG PCO2 131.4 mmHg (35.0-48.0); BG PH 7.171 (7.350-7.450); BG PO2 259.1 mmHg (83.0-108.0); BG SAMPLE SITE RIGHT BRACHIAL; BG TOTAL HEMOGLOBIN 11.1 g/dL (13.5-17.5); BG VENT MODE HHN TREATMENT
[2025-05-13 13:30] LABS: BASOPHILS % 0.5 % (0.0-2.0); EOSINOPHILS % 0.4 % (0.0-5.0); HEMATOCRIT. 32.3 % (42.0-52.0); HEMOGLOBIN. 9.9 g/dL (14.0-18.0); LYMPHOCYTES % 20.3 % (20.0-50.0); MEAN PLATELET VOLUME 8.4 fl (7.4-10.4); MONOCYTES % 11.1 % (2.0-8.0); NEUTROPHILS % 67.7 % (40.0-76.0); PLATELET 167 x1000/uL (130-400); RED BLOOD CELL COUNT 4.19 mill/uL (4.7-6.1); RED CELL DISTRIBUTION WIDTH 17.3 % (11.6-14.6)
[2025-05-13 13:46] LABS: CREATININE 0.7 mg/dL (0.6-1.3)
[2025-05-13 13:47] LABS: TROPONIN I HIGH SENSITIVITY 8 ng/L (3.0-53); UREA NITROGEN BLOOD 11 mg/dL (9-23)
[2025-05-13 13:48] LABS: ASPARTATE AMINOTRANSFERASE 35 IU/L (<34)
[2025-05-13 13:49] LABS: BILIRUBIN DIRECT < 0.1 mg/dL (<=3.0); BILIRUBIN TOTAL 0.2 mg/dL (0.1-1.0); PROTEIN TOTAL 6.7 g/dL (6.0-8.3)
[2025-05-13] MEDS: MAGNESIUM 2 G PREMIX 50 ML IV STA (14:12)
[2025-05-13 15:20] LABS: CLARITY URINE CLEAR (CLEAR); COLOR URINE YELLOW (YELLOW); GLUCOSE URINE NEGATIVE (NEGATIVE); KETONES URINE TRACE (NEGATIVE); LEUKOCYTE ESTERASE URINE NEGATIVE (NEGATIVE); NITRITE URINE NEGATIVE (NEGATIVE); OCCULT BLOOD URINE TRACE (NEGATIVE); PH URINE 5.5 (4.5-8.0); PROTEIN URINE TRACE (NEGATIVE); SPECIFIC GRAVITY URINE 1.015 (1.005-1.030); UROBILINOGEN URINE 1.0 E.U./dL (0.2-1.0)
[2025-05-13 15:37] LABS: SQUAMOUS EPITHELIAL CELL URINE RARE /lpf (RARE/1+); WBC URINE 0-2 /hpf (0-2)
[2025-05-13 15:38] LABS: BACTERIA URINE TRACE
[2025-05-13 15:49] LABS: INR 1.0
[2025-05-13] MEDS ORDERED: IPRATROPIUM/ALBUTEROL 0.5-3(2.5)MG/3ML NEB HHN PRN (16:15)
[2025-05-13] MEDS ORDERED: ONDANSETRON HCL 4MG/2ML INJ IV PRN (16:15)
[2025-05-13] MEDS ORDERED: ACETAMINOPHEN 325MG TABLET PO PRN ×2 (16:15)
[2025-05-13] MEDS ORDERED: DOCUSATE SODIUM 100MG CAPSULE PO PRN (16:15)
[2025-05-13] MEDS ORDERED: CLONIDINE 0.1MG TABLET PO PRN (16:15)
[2025-05-13 16:43] LABS: BG BASE EXCESS 10.9 mmol/L (-2.0-3.0); BG CARBOXYHEMOGLOBIN 0.5 % (0.5-1.5); BG DEOXYHEMOGLOBIN 8.7 % (0.0-5.0); BG FRACTION INSPIRED OXYGEN 30; BG HCO3 ACT 40.3 mmol/L (21.0-28.0); BG METHEMOGLOBIN 0.3 % (0.5-1.5); BG OXYGEN SATURATION 91.2 % (94.0-98.0); BG OXYHEMOGLOBIN 90.5 % (94.0-98.0); BG PCO2 84.1 mmHg (35.0-48.0); BG PH 7.298 (7.350-7.450); BG PO2 59.9 mmHg (83.0-108.0); BG SAMPLE SITE LEFT RADIAL; BG TOTAL HEMOGLOBIN 11.4 g/dL (13.5-17.5); BG TOTAL RESPIRATORY RATE 18 b/min; BG VENT MODE MASK - BIPAP; BG VENT RATE 18.0 set
[2025-05-13] MEDS ORDERED: CEFTRIAXONE 1GM/50ML 50 ML IV SCH (18:00)
[2025-05-13 19:59] LABS: TRIGLYCERIDE 70.0 mg/dL (0-150)
[2025-05-13 20:00] LABS: LDL CHOLESTEROL 53.0 mg/dL (5-100)
[2025-05-13 20:05] LABS: FOLIC ACID (FOLATE) SERUM 16.36 ng/mL (>5.38); VITAMIN B12 SERUM 711 pg/mL (211-911)
[2025-05-13] MEDS: IPRATROPIUM/ALBUTEROL 0.5-3(2.5)MG/3ML NEB HHN SCH (20:22)
[2025-05-13] MEDS: APIXABAN 5 MG TABLET PO SCH (20:35)
[2025-05-13] MEDS: CARVEDILOL 3.125 MG TABLET PO SCH (20:35)
[2025-05-14] VITALS (16 sets, daily range): BP systolic 94–120; BP diastolic 63–80; PULSE 78–105; RESP 16–24; TEMP 36.3–37.7; O2SAT 96–100
[2025-05-14 06:30] LABS: CREATININE 0.6 mg/dL (0.6-1.3)
[2025-05-14 06:31] LABS: BASOPHILS % 0.1 % (0.0-2.0); EOSINOPHILS % 0.0 % (0.0-5.0); HEMATOCRIT. 32.1 % (42.0-52.0); HEMOGLOBIN. 9.9 g/dL (14.0-18.0); LYMPHOCYTES % 18.5 % (20.0-50.0); MEAN PLATELET VOLUME 9.7 fl (7.4-10.4); MONOCYTES % 4.4 % (2.0-8.0); NEUTROPHILS % 77.0 % (40.0-76.0); PLATELET 170 x1000/uL (130-400); RED BLOOD CELL COUNT 4.21 mill/uL (4.7-6.1); RED CELL DISTRIBUTION WIDTH 16.7 % (11.6-14.6); UREA NITROGEN BLOOD 11 mg/dL (9-23)
[2025-05-14 06:32] LABS: ASPARTATE AMINOTRANSFERASE 21 IU/L (<34)
[2025-05-14 06:33] LABS: BILIRUBIN TOTAL 0.3 mg/dL (0.1-1.0); PROTEIN TOTAL 6.6 g/dL (6.0-8.3)
[2025-05-14 10:07] LABS: *AMPHETAMINES SCREEN URINE NEGATIVE (NEGATIVE); *BARBITURATES SCREEN URINE NEGATIVE (NEGATIVE); *BENZODIAZEPINES SCREEN URINE NEGATIVE (NEGATIVE); *COCAINE SCREEN URINE NEGATIVE (NEGATIVE); CANNABINOID URINE SCREEN NEGATIVE (NEGATIVE); ECSTASY MDMA SCREEN URINE NEGATIVE (NEGATIVE); METHADONE URINE SCREEN NEGATIVE (NEGATIVE); OPIATES URINE SCREEN NEGATIVE (NEGATIVE); PHENCYCLIDINE URINE SCREEN NEGATIVE (NEGATIVE)
[2025-05-14 10:08] LABS: BG BASE EXCESS 14.3 mmol/L (-2.0-3.0); BG CARBOXYHEMOGLOBIN 0.9 % (0.5-1.5); BG DEOXYHEMOGLOBIN 3.3 % (0.0-5.0); BG FRACTION INSPIRED OXYGEN 30; BG HCO3 ACT 40.6 mmol/L (21.0-28.0); BG METHEMOGLOBIN 0.3 % (0.5-1.5); BG OXYGEN SATURATION 96.7 % (94.0-98.0); BG OXYHEMOGLOBIN 95.5 % (94.0-98.0); BG PCO2 61.2 mmHg (35.0-48.0); BG PH 7.440 (7.350-7.450); BG PO2 82.2 mmHg (83.0-108.0); BG SAMPLE SITE RIGHT BRACHIAL; BG TOTAL HEMOGLOBIN 10.5 g/dL (13.5-17.5); BG VENT MODE MASK - BIPAP; BG VENT RATE 18.0 set
[2025-05-14] MEDS: DEXTROSE 5% WATER 1,000 ML IV SCH (12:48)
[2025-05-14] MEDS ORDERED: AZITHROMYCIN 500MG/250ML 250 ML IV SCH (13:00)
[2025-05-14] MEDS: AZITHROMYCIN 500MG/250ML 250 ML IV SCH (13:21)
[2025-05-14] MEDS: PANTOPRAZOLE SODIUM 40 MG/VIAL IV SCH (18:13)
== END 2025-05-14 21:00 | disposition short-term general hospital (02) | DRG 70 ==
LOC: ER 12:41 → ENRESERV 17:58 → 5EST 18:21
PROVIDERS: ADMIT Family Medicine Adult Medicine; ATTEND Family Medicine Adult Medicine
PROC: 5A0935Z Assistance with Respiratory Ventilation, Less than 24 Consecutive Hours (ICD-10-PCS; principal; 2025-05-13)
PROC: 5A0935Z Assistance with Respiratory Ventilation, Less than 24 Consecutive Hours (ICD-10-PCS; 2025-05-14)
DX: G93.40 Encephalopathy, unspecified (principal); J18.9 Pneumonia, unspecified organism; J96.01 Acute respiratory failure with hypoxia; J96.02 Acute respiratory failure with hypercapnia; J44.0 Chronic obstructive pulmonary disease with (acute) lower respiratory infection; E87.29 Other acidosis; J44.1 Chronic obstructive pulmonary disease with (acute) exacerbation; I50.9 Heart failure, unspecified; I11.0 Hypertensive heart disease with heart failure; E78.5 Hyperlipidemia, unspecified; I48.91 Unspecified atrial fibrillation; G47.33 Obstructive sleep apnea (adult) (pediatric); R29.810 Facial weakness; Z79.01 Long term (current) use of anticoagulants; Z99.81 Dependence on supplemental oxygen
CPT/HCPCS: 36415; 36600; 71045; 80048; 80053; 80061; 80076; 80305; 81003; 82375; 82607; 82746; 82805; 82962; 83605; 83880; 84145; 84425; 84443; 84484; 85025; 93005; 94070; 94640; 94660; 99291; A4606; J0456; J2470; J2919; J3475; J7070

== ENCOUNTER 2025-05-29 06:31 | Inpatient (IN) | payer OTHER ==
[2025-05-29] VITALS (11 sets, daily range): BP systolic 102–110; BP diastolic 66–79; PULSE 104–120; RESP 20–30; TEMP 36.3–36.9; O2SAT 89–97
[~2025-05-29] VITALS: Ht 165.1 cm; Wt 58.2 kg
[2025-05-29] MEDS: SODIUM CHLORIDE 0.9% (SEPSIS BOLUS) IV ONE (07:27)
[2025-05-29 07:39] LABS: BASOPHILS % 0.7 % (0.0-2.0); EOSINOPHILS % 1.1 % (0.0-5.0); HEMATOCRIT. 32.6 % (42.0-52.0); HEMOGLOBIN. 10.0 g/dL (14.0-18.0); LYMPHOCYTES % 25.5 % (20.0-50.0); MEAN PLATELET VOLUME 9.7 fl (7.4-10.4); MONOCYTES % 8.5 % (2.0-8.0); NEUTROPHILS % 64.2 % (40.0-76.0); PLATELET 125 x1000/uL (130-400); RED BLOOD CELL COUNT 4.26 mill/uL (4.7-6.1); RED CELL DISTRIBUTION WIDTH 16.9 % (11.6-14.6)
[2025-05-29] MEDS: PIPERACILLIN/TAZO 3.375G/50ML 50 ML IV ONE (07:42)
[2025-05-29 07:43] LABS: CREATININE 0.7 mg/dL (0.6-1.3); UREA NITROGEN BLOOD 11 mg/dL (9-23)
[2025-05-29 07:44] LABS: TROPONIN I HIGH SENSITIVITY 15 ng/L (3.0-53)
[2025-05-29 07:45] LABS: ASPARTATE AMINOTRANSFERASE 22 IU/L (<34); BILIRUBIN DIRECT 0.1 mg/dL (<=3.0); BILIRUBIN TOTAL 0.3 mg/dL (0.1-1.0); PROTEIN TOTAL 6.6 g/dL (6.0-8.3)
[2025-05-29] MEDS: VANCOMYCIN 1G PREMIX 200 ML IV ONE (08:35)
[2025-05-29 08:54] LABS: INR 1.1
[2025-05-29 09:50] LABS: BG BASE EXCESS 17.0 mmol/L (-2.0-3.0); BG CARBOXYHEMOGLOBIN 0.7 % (0.5-1.5); BG DEOXYHEMOGLOBIN 6.6 % (0.0-5.0); BG FRACTION INSPIRED OXYGEN 40; BG HCO3 ACT 42.0 mmol/L (21.0-28.0); BG METHEMOGLOBIN 0.3 % (0.5-1.5); BG OXYGEN SATURATION 93.3 % (94.0-98.0); BG OXYHEMOGLOBIN 92.4 % (94.0-98.0); BG PCO2 52.2 mmHg (35.0-48.0); BG PH 7.523 (7.350-7.450); BG PO2 57.8 mmHg (83.0-108.0); BG SAMPLE SITE RIGHT RADIAL; BG TOTAL HEMOGLOBIN 10.3 g/dL (13.5-17.5); BG VENT MODE MASK - BIPAP; BG VENT RATE 24.0 set
[2025-05-29 11:31] LABS: CLARITY URINE CLEAR (CLEAR); COLOR URINE YELLOW (YELLOW); SPECIFIC GRAVITY URINE 1.012 (1.005-1.030)
[2025-05-29 11:32] LABS: GLUCOSE URINE NEGATIVE (NEGATIVE); KETONES URINE NEGATIVE (NEGATIVE); LEUKOCYTE ESTERASE URINE NEGATIVE (NEGATIVE); NITRITE URINE NEGATIVE (NEGATIVE); OCCULT BLOOD URINE NEGATIVE (NEGATIVE); PH URINE >=9.0 (4.5-8.0); PROTEIN URINE 1+ (NEGATIVE); UROBILINOGEN URINE 1.0 E.U./dL (0.2-1.0)
[2025-05-29 11:35] LABS: SQUAMOUS EPITHELIAL CELL URINE 1+ /lpf (RARE/1+)
[2025-05-29 11:36] LABS: RBC URINE 0-2 /hpf (0-2)
[2025-05-29 11:37] LABS: BACTERIA URINE NONE SEEN
[2025-05-29] MEDS ORDERED: ACETAMINOPHEN 325MG TABLET PO PRN ×2 (13:15)
[2025-05-29] MEDS ORDERED: CLONIDINE 0.1MG TABLET PO PRN (13:15)
[2025-05-29] MEDS ORDERED: IPRATROPIUM/ALBUTEROL 0.5-3(2.5)MG/3ML NEB HHN PRN (13:15)
[2025-05-29] MEDS ORDERED: IPRATROPIUM/ALBUTEROL 0.5-3(2.5)MG/3ML NEB HHN SCH (13:30)
[2025-05-29] MEDS ORDERED: FLUDROCORTISONE ACETATE 0.1MG TABLET PO SCH (14:00)
[2025-05-29] MEDS: PANTOPRAZOLE SODIUM 40 MG/VIAL IV SCH (14:39)
[2025-05-29] MEDS: AMIODARONE 200MG TABLET PO SCH (14:39)
[2025-05-29] MEDS: POTASSIUM CHLORIDE 20MEQ/PACKET PO SCH (14:39)
[2025-05-29] MEDS: MIDODRINE HCL 5MG TABLET PO SCH (15:03)
[2025-05-29] MEDS: IPRATROPIUM/ALBUTEROL 0.5-3(2.5)MG/3ML NEB HHN SCH (17:10)
[2025-05-29] MEDS: ACETYLCYSTEINE 200MG/ML 20% VIAL 4ML INH SCH (17:10)
[2025-05-29] MEDS ORDERED: SODIUM CHLORIDE 3% FOR INH 4ML NEB INH SCH (18:00)
[2025-05-29] MEDS ORDERED: FAMO20TA8 PO (18:12)
[2025-05-29] MEDS ORDERED: MIDO10TA3 PO (18:12)
[2025-05-29] MEDS ORDERED: FLUD0.1T PO (18:12)
[2025-05-29] MEDS ORDERED: ROSU20CA PO (18:12)
[2025-05-29] MEDS ORDERED: ESCI5TAB16 PO (18:12)
[2025-05-29] MEDS ORDERED: ROFL500T9 PO (18:12)
[2025-05-29] MEDS ORDERED: TAMS-54 PO (18:12)
[2025-05-29] MEDS ORDERED: TRAZ-251 PO (18:12)
[2025-05-29] MEDS ORDERED: METO25TA6 PO (18:12)
[2025-05-29] MEDS ORDERED: FURO20TA4 PO (18:12)
[2025-05-29] MEDS ORDERED: PNEUMOCOCCAL 20-VAL CONJ-DIP CRM 0.5ML IM ONE (18:15)
[2025-05-29] MEDS: SODIUM CHLORIDE 3% FOR INH 4ML NEB INH SCH (19:54)
[2025-05-29] MEDS ORDERED: APIXABAN 5 MG TABLET PO SCH (21:00)
[2025-05-29 21:16] LABS: CREATINE KINASE MB FRACTION < 0.5 ng/mL (0.5-3.6); TROPONIN I HIGH SENSITIVITY 24 ng/L (3.0-53)
[2025-05-29 21:17] LABS: PHOSPHORUS 1.5 mg/dL (2.5-4.9)
[2025-05-29] MEDS: CEFTRIAXONE 1GM/50ML 50 ML IV SCH (22:12)
[2025-05-29] MEDS: APIXABAN 2.5 MG TABLET PO SCH (22:13)
[2025-05-29] MEDS: ATORVASTATIN CALCIUM 20MG TABLET PO SCH (22:13)
[2025-05-29] MEDS: AZITHROMYCIN 500MG/250ML 250 ML IV SCH (22:14)
[2025-05-29] MEDS: ONDANSETRON HCL 4MG/2ML INJ IV PRN (22:15)
[2025-05-30] VITALS (17 sets, daily range): BP systolic 91–139; BP diastolic 59–76; PULSE 99–121; RESP 16–31; TEMP 36.3–36.9; O2SAT 87–97
[2025-05-30 06:55] LABS: BASOPHILS % 0.2 % (0.0-2.0); EOSINOPHILS % 0.6 % (0.0-5.0); HEMATOCRIT. 30.8 % (42.0-52.0); HEMOGLOBIN. 9.5 g/dL (14.0-18.0); LYMPHOCYTES % 13.6 % (20.0-50.0); MEAN PLATELET VOLUME 10.2 fl (7.4-10.4); MONOCYTES % 10.0 % (2.0-8.0); NEUTROPHILS % 75.6 % (40.0-76.0); PLATELET 114 x1000/uL (130-400); RED BLOOD CELL COUNT 4.05 mill/uL (4.7-6.1); RED CELL DISTRIBUTION WIDTH 17.0 % (11.6-14.6)
[2025-05-30 07:07] LABS: CREATINE KINASE MB FRACTION < 0.5 ng/mL (0.5-3.6); TROPONIN I HIGH SENSITIVITY 17 ng/L (3.0-53)
[2025-05-30 07:10] LABS: CREATININE 0.8 mg/dL (0.6-1.3); UREA NITROGEN BLOOD 10 mg/dL (9-23)
[2025-05-30] MEDS: FLUDROCORTISONE ACETATE 0.1MG TABLET PO SCH (09:34)
[2025-05-30 12:33] LABS: *AMPHETAMINES SCREEN URINE NEGATIVE (NEGATIVE)
[2025-05-30 12:34] LABS: *BARBITURATES SCREEN URINE NEGATIVE (NEGATIVE); *BENZODIAZEPINES SCREEN URINE NEGATIVE (NEGATIVE); *COCAINE SCREEN URINE NEGATIVE (NEGATIVE); CANNABINOID URINE SCREEN NEGATIVE (NEGATIVE); METHADONE URINE SCREEN NEGATIVE (NEGATIVE); OPIATES URINE SCREEN NEGATIVE (NEGATIVE); PHENCYCLIDINE URINE SCREEN NEGATIVE (NEGATIVE)
[2025-05-30 12:35] LABS: ECSTASY MDMA SCREEN URINE NEGATIVE (NEGATIVE)
[2025-05-30 13:20] LABS: ASPARTATE AMINOTRANSFERASE 21 IU/L (<34); BILIRUBIN DIRECT 0.1 mg/dL (<=3.0); BILIRUBIN TOTAL 0.3 mg/dL (0.1-1.0); PROTEIN TOTAL 6.1 g/dL (6.0-8.3)
[2025-05-30] MEDS: POTASSIUM PHOSPHATE 20 MMOL in DEXT 5% WATER 243.3333 ML IV SCH (13:59)
[2025-05-30] MEDS: IRON SUCROSE COMPLEX 100 MG/5 ML ML IV SCH (13:59)
[2025-05-31] VITALS (18 sets, daily range): BP systolic 77–131; BP diastolic 50–89; PULSE 76–111; RESP 15–31; TEMP 36.4–36.9; O2SAT 90–100
[2025-05-31] MEDS: DOCUSATE SODIUM 100MG CAPSULE PO PRN (10:06)
[2025-05-31 11:18] LABS: BASOPHILS % 0.2 % (0.0-2.0); EOSINOPHILS % 0.6 % (0.0-5.0); HEMATOCRIT. 29.9 % (42.0-52.0); HEMOGLOBIN. 9.3 g/dL (14.0-18.0); LYMPHOCYTES % 13.8 % (20.0-50.0); MEAN PLATELET VOLUME 9.6 fl (7.4-10.4); MONOCYTES % 11.7 % (2.0-8.0); NEUTROPHILS % 73.7 % (40.0-76.0); PLATELET 114 x1000/uL (130-400); RED BLOOD CELL COUNT 3.92 mill/uL (4.7-6.1); RED CELL DISTRIBUTION WIDTH 17.0 % (11.6-14.6)
[2025-05-31 11:31] LABS: CREATININE 0.7 mg/dL (0.6-1.3)
[2025-05-31 11:32] LABS: UREA NITROGEN BLOOD 8 mg/dL (9-23)
[2025-05-31 11:34] LABS: PHOSPHORUS 3.4 mg/dL (2.5-4.9)
[2025-05-31] MEDS: POTASSIUM CHLORIDE 20MEQ/PACKET PO SCH (18:15)
[2025-05-31] MEDS: MAGNESIUM 2 G PREMIX 50 ML IV SCH (18:15)
[2025-06-01] VITALS (17 sets, daily range): BP systolic 84–99; BP diastolic 52–62; PULSE 80–111; RESP 16–31; TEMP 36.4–37; O2SAT 93–100
[2025-06-01 06:11] LABS: ALPHA FETOPROTEIN TUMOR MARKER 2.2 ng/mL (0.0-6.4); CA 19-9 22.0 U/mL (0-35); CARCINOEMBRYONIC AG - SEND OUT 8.6 ng/mL (0.0-4.7)
[2025-06-01 06:51] LABS: BASOPHILS % 0.4 % (0.0-2.0); EOSINOPHILS % 2.3 % (0.0-5.0); HEMATOCRIT. 26.4 % (42.0-52.0); HEMOGLOBIN. 8.5 g/dL (14.0-18.0); LYMPHOCYTES % 19.5 % (20.0-50.0); MEAN PLATELET VOLUME 9.9 fl (7.4-10.4); MONOCYTES % 10.9 % (2.0-8.0); NEUTROPHILS % 66.9 % (40.0-76.0); PLATELET 116 x1000/uL (130-400); RED BLOOD CELL COUNT 3.54 mill/uL (4.7-6.1); RED CELL DISTRIBUTION WIDTH 17.1 % (11.6-14.6)
[2025-06-01 07:14] LABS: CREATININE 0.7 mg/dL (0.6-1.3); UREA NITROGEN BLOOD 9 mg/dL (9-23)
[2025-06-01 07:17] LABS: PHOSPHORUS 3.2 mg/dL (2.5-4.9)
[2025-06-01] MEDS: POTASSIUM CHLORIDE 20MEQ/PACKET PO NR (08:29)
[2025-06-01] MEDS ORDERED: POTASSIUM CHLORIDE 20MEQ/PACKET PO SCH (11:15)
[2025-06-01] MEDS: MIDODRINE HCL 5MG TABLET PO NR (11:54)
[2025-06-01] MEDS: MIDODRINE HCL 5MG TABLET PO SCH (22:18)
[2025-06-02] VITALS (17 sets, daily range): BP systolic 90–116; BP diastolic 53–67; PULSE 82–94; RESP 14–30; TEMP 36.4–36.9; O2SAT 99–100
[2025-06-02 06:53] LABS: CREATININE 0.8 mg/dL (0.6-1.3); UREA NITROGEN BLOOD 14 mg/dL (9-23)
[2025-06-02 06:55] LABS: PHOSPHORUS 3.6 mg/dL (2.5-4.9)
[2025-06-02 06:57] LABS: BASOPHILS % 0.3 % (0.0-2.0); EOSINOPHILS % 2.8 % (0.0-5.0); HEMATOCRIT. 24.7 % (42.0-52.0); HEMOGLOBIN. 7.9 g/dL (14.0-18.0); LYMPHOCYTES % 29.9 % (20.0-50.0); MEAN PLATELET VOLUME 9.7 fl (7.4-10.4); MONOCYTES % 12.6 % (2.0-8.0); NEUTROPHILS % 54.4 % (40.0-76.0); PLATELET 125 x1000/uL (130-400); RED BLOOD CELL COUNT 3.30 mill/uL (4.7-6.1); RED CELL DISTRIBUTION WIDTH 17.0 % (11.6-14.6)
[2025-06-02] MEDS: FAMOTIDINE 20MG/2ML VIAL IV SCH (09:11)
[2025-06-02] MEDS: POTASSIUM CHLORIDE 20MEQ/PACKET PO NR (09:11)
[2025-06-03] VITALS (13 sets, daily range): BP systolic 105–119; BP diastolic 59–72; PULSE 68–101; RESP 20–32; TEMP 36.2–36.9; O2SAT 24–100
[2025-06-03 06:51] LABS: HEMATOCRIT. 26.7 % (42.0-52.0); HEMOGLOBIN. 8.2 g/dL (14.0-18.0); MEAN PLATELET VOLUME 9.8 fl (7.4-10.4); PLATELET 142 x1000/uL (130-400); RED BLOOD CELL COUNT 3.49 mill/uL (4.7-6.1); RED CELL DISTRIBUTION WIDTH 17.4 % (11.6-14.6)
[2025-06-03 07:05] LABS: CREATININE 0.8 mg/dL (0.6-1.3); UREA NITROGEN BLOOD 11 mg/dL (9-23)
[2025-06-03 07:08] LABS: PHOSPHORUS 3.2 mg/dL (2.5-4.9)
[2025-06-03] MEDS ORDERED: PROT40 MT (13:21)
[2025-06-03] MEDS ORDERED: AZIT500T MT ×2 (13:44→16:04)
[2025-06-03 14:11] LABS: EOSINOPHILS % MANUAL 6.0 % (0.0-5.0); LYMPHOCYTES % MANUAL 34.0 % (20.0-50.0); MONOCYTES % MANUAL 11.0 % (2.0-8.0); NEUTROPHILS % MANUAL 49.0 % (45.0-75.0); NUCLEATED RED BLOOD CELLS 1 /100 WBC; PLATELET ESTIMATE NORMAL
[2025-06-03] MEDS ORDERED: ATOR20TA65 MT ×2 (14:11→16:04)
[2025-06-03] MEDS ORDERED: APIX2.5T MT ×2 (14:11→16:04)
[2025-06-03] MEDS ORDERED: METH4TAB95 MT ×2 (14:15→16:09)
[2025-06-03] MEDS ORDERED: AMI2 MT (16:04)
== END 2025-06-03 16:10 | disposition short-term general hospital (02) | DRG 205 ==
LOC: ER 06:31 → 5EST 10:33 → EDBEDREQ 10:38 → EDBEDREQTM 10:38 → ENRESERV 11:53
PROVIDERS: ADMIT Internal Medicine; ATTEND Internal Medicine
PROC: 5A09357 Assistance with Respiratory Ventilation, Less than 24 Consecutive Hours, Continuous Positive Airway Pressure (ICD-10-PCS; 2025-05-29)
PROC: 5A09357 Assistance with Respiratory Ventilation, Less than 24 Consecutive Hours, Continuous Positive Airway Pressure (ICD-10-PCS; principal; 2025-05-30)
DX: T17.890A Other foreign object in other parts of respiratory tract causing asphyxiation, initial encounter (principal); J96.21 Acute and chronic respiratory failure with hypoxia; J96.22 Acute and chronic respiratory failure with hypercapnia; E87.4 Mixed disorder of acid-base balance; J98.19 Other pulmonary collapse; J44.0 Chronic obstructive pulmonary disease with (acute) lower respiratory infection; I50.32 Chronic diastolic (congestive) heart failure; E87.6 Hypokalemia; E83.42 Hypomagnesemia; I11.0 Hypertensive heart disease with heart failure; D72.829 Elevated white blood cell count, unspecified; E78.5 Hyperlipidemia, unspecified; G47.33 Obstructive sleep apnea (adult) (pediatric); I48.91 Unspecified atrial fibrillation; I95.9 Hypotension, unspecified; D50.9 Iron deficiency anemia, unspecified; J40 Bronchitis, not specified as acute or chronic; Z88.8 Allergy status to other drugs, medicaments and biological substances; Z86.73 Personal history of transient ischemic attack (TIA), and cerebral infarction without residual deficits; Z99.81 Dependence on supplemental oxygen; Z79.899 Other long term (current) drug therapy; Z79.01 Long term (current) use of anticoagulants; Y92.89 Other specified places as the place of occurrence of the external cause; Z82.49 Family history of ischemic heart disease and other diseases of the circulatory system; Z80.0 Family history of malignant neoplasm of digestive organs
CPT/HCPCS: 36415; 36600; 71045; 74176; 80048; 80076; 80305; 81003; 82105; 82375; 82378; 82550; 82553; 82805; 83540; 83550; 83605; 83735; 83880; 84100; 84145; 84484; 85014; 85018; 85025; 85379; 86301; 93005; 93880; 93970; 94070; 94640; 94660; 94664; 94667; 97161; 98960; 99291; A4606; J0456; J0696; J1308; J2405; J2470; J2543; J3373; J3475; J3490; J7030; J7060; J7608

== ENCOUNTER 2025-06-24 11:29 | Inpatient (IN) | payer OTHER ==
[~2025-06-24] VITALS: Ht 182.9 cm; Wt 65.8 kg
[2025-06-24] VITALS (11 sets, daily range): BP systolic 106–138; BP diastolic 70–89; PULSE 81–100; RESP 14–25; TEMP 36.4–37.1964; O2SAT 94–100
[~2025-06-24 11:29] MED LIST changes: -ACET-2708 MT; -ACET650S27 RC; -ALBU6.7H15 PO; +AMI2 MT; +APIX2.5T MT; -APIX5TAB MT; +ATOR20TA65 MT; +AZIT500T MT; -CARB15DR68 OT; -CARV3.1242 PO; -DOCU-422 MT; +ESCI5TAB16 PO; +FAMO20TA8 PO; +FLUD0.1T PO; +FURO20TA4 PO; -IPRA3AMP31 IH; -LORA-249 MT; +METH4TAB95 MT; +METO25TA6 PO; +MIDO10TA3 PO; -ONDA-241 MT; -POLY17PO3 MT; +ROFL500T9 PO; +ROSU20CA PO; +TAMS-54 PO; +TRAZ-251 PO; -[UNRECOGNIZED DRUG - CODE] PO
[2025-06-24 12:01] LABS: BASOPHILS % 0.4 % (0.0-2.0); EOSINOPHILS % 1.9 % (0.0-5.0); HEMATOCRIT. 30.3 % (42.0-52.0); HEMOGLOBIN. 9.2 g/dL (14.0-18.0); LYMPHOCYTES % 38.6 % (20.0-50.0); MEAN PLATELET VOLUME 8.4 fl (7.4-10.4); MONOCYTES % 9.7 % (2.0-8.0); NEUTROPHILS % 49.4 % (40.0-76.0); PLATELET 104 x1000/uL (130-400); RED BLOOD CELL COUNT 3.91 mill/uL (4.7-6.1); RED CELL DISTRIBUTION WIDTH 17.0 % (11.6-14.6)
[2025-06-24 12:12] LABS: CREATININE 0.6 mg/dL (0.6-1.3); UREA NITROGEN BLOOD 9 mg/dL (9-23)
[2025-06-24 12:48] LABS: BG BASE EXCESS 26.2 mmol/L (-2.0-3.0); BG CARBOXYHEMOGLOBIN 0.3 % (0.5-1.5); BG DEOXYHEMOGLOBIN 6.9 % (0.0-5.0); BG FLOW(L/min) 2.00 L/min; BG FRACTION INSPIRED OXYGEN 28; BG HCO3 ACT 55.9 mmol/L (21.0-28.0); BG METHEMOGLOBIN 0.3 % (0.5-1.5); BG OXYGEN SATURATION 93.1 % (94.0-98.0); BG OXYHEMOGLOBIN 92.5 % (94.0-98.0); BG PCO2 98.7 mmHg (35.0-48.0); BG PH 7.371 (7.350-7.450); BG PO2 63.9 mmHg (83.0-108.0); BG SAMPLE SITE RIGHT RADIAL; BG TOTAL HEMOGLOBIN 9.9 g/dL (13.5-17.5); BG VENT MODE NASAL CANNULA
[2025-06-24] MEDS: ALBUTEROL (0.083%) 2.5MG/3ML NEB HHN SCH (13:04)
[2025-06-24] MEDS: IPRATROPIUM BROMIDE (0.02%) 0.5MG/2.5ML NEB HHN SCH (13:04)
[2025-06-24 13:29] LABS: TROPONIN I HIGH SENSITIVITY 7 ng/L (3.0-53)
[2025-06-24] MEDS: METHYLPREDNISOLONE SOD SUCC 125MG/2ML (ACT-O-VIAL) IV ONE (13:31)
[2025-06-24] MEDS ORDERED: ONDANSETRON HCL 4MG/2ML INJ IV PRN (15:00)
[2025-06-24] MEDS ORDERED: GUAIFENESIN 200MG/10ML SUGAR FREE UDC PO PRN (15:00)
[2025-06-24] MEDS ORDERED: DOCUSATE SODIUM 100MG CAPSULE PO PRN (15:00)
[2025-06-24] MEDS ORDERED: IPRATROPIUM/ALBUTEROL 0.5-3(2.5)MG/3ML NEB HHN PRN ×2 (15:00→19:45)
[2025-06-24] MEDS ORDERED: ACETAMINOPHEN 325MG TABLET PO PRN ×2 (15:00)
[2025-06-24] MEDS ORDERED: CLONIDINE 0.1MG TABLET PO PRN (15:00)
[2025-06-24] MEDS ORDERED: AZITHROMYCIN 250 MG in DEXT 5% WATER 250 ML IV SCH (15:15)
[2025-06-24] MEDS: MIDODRINE HCL 5MG TABLET PO SCH (17:00)
[2025-06-24 17:39] LABS: CLARITY URINE CLEAR (CLEAR); COLOR URINE YELLOW (YELLOW); GLUCOSE URINE NEGATIVE (NEGATIVE); KETONES URINE NEGATIVE (NEGATIVE); LEUKOCYTE ESTERASE URINE NEGATIVE (NEGATIVE); NITRITE URINE NEGATIVE (NEGATIVE); OCCULT BLOOD URINE NEGATIVE (NEGATIVE); PH URINE 8.0 (4.5-8.0); PROTEIN URINE NEGATIVE (NEGATIVE); SPECIFIC GRAVITY URINE 1.007 (1.005-1.030); UROBILINOGEN URINE 1.0 E.U./dL (0.2-1.0)
[2025-06-24] MEDS: DEXTROSE 5% WATER 1,000 ML IV SCH (17:43)
[2025-06-24 17:46] LABS: *AMPHETAMINES SCREEN URINE NEGATIVE (NEGATIVE); *BARBITURATES SCREEN URINE NEGATIVE (NEGATIVE); *BENZODIAZEPINES SCREEN URINE NEGATIVE (NEGATIVE)
[2025-06-24 17:47] LABS: *COCAINE SCREEN URINE NEGATIVE (NEGATIVE); CANNABINOID URINE SCREEN NEGATIVE (NEGATIVE); ECSTASY MDMA SCREEN URINE NEGATIVE (NEGATIVE); METHADONE URINE SCREEN NEGATIVE (NEGATIVE); OPIATES URINE SCREEN NEGATIVE (NEGATIVE); PHENCYCLIDINE URINE SCREEN NEGATIVE (NEGATIVE)
[2025-06-24] MEDS: AZITHROMYCIN 500MG/250ML 250 ML IV SCH (18:11)
[2025-06-24 19:25] LABS: ASPARTATE AMINOTRANSFERASE 32 IU/L (<34); BILIRUBIN DIRECT < 0.1 mg/dL (<=3.0); BILIRUBIN TOTAL 0.2 mg/dL (0.1-1.0); PHOSPHORUS 2.9 mg/dL (2.5-4.9)
[2025-06-24 19:26] LABS: PROTEIN TOTAL 6.5 g/dL (6.0-8.3)
[2025-06-24 19:28] LABS: T4 FREE 1.03 ng/dL (0.89-1.76)
[2025-06-24] MEDS: APIXABAN 2.5 MG TABLET PO SCH (21:00)
[2025-06-24] MEDS: ATORVASTATIN CALCIUM 20MG TABLET PO SCH (21:00)
[2025-06-24] MEDS ORDERED: TAMSULOSIN HCL 0.4MG SR CAPSULE PO SCH (21:00)
[2025-06-24] MEDS: FAMOTIDINE 20MG TABLET PO SCH (21:00)
[2025-06-24] MEDS ORDERED: FAMOTIDINE(NEO) 1MG/ML SUSP PO SCH (21:00)
[2025-06-24] MEDS: METHYLPREDNISOLONE SOD SUCC 40MG/ML (ACT-O-VIAL) IV SCH (22:02)
[2025-06-25] VITALS (15 sets, daily range): BP systolic 103–169; BP diastolic 58–90; PULSE 67–87; RESP 14–22; TEMP 36.3–36.7; O2SAT 96–99
[2025-06-25] MEDS: IPRATROPIUM/ALBUTEROL 0.5-3(2.5)MG/3ML NEB HHN SCH (00:06)
[2025-06-25 06:08] LABS: TROPONIN I HIGH SENSITIVITY 6 ng/L (3.0-53)
[2025-06-25 06:13] LABS: CREATININE 0.7 mg/dL (0.6-1.3); UREA NITROGEN BLOOD 12 mg/dL (9-23)
[2025-06-25 06:23] LABS: BASOPHILS % 0.1 % (0.0-2.0); EOSINOPHILS % 0.0 % (0.0-5.0); HEMATOCRIT. 29.6 % (42.0-52.0); HEMOGLOBIN. 9.0 g/dL (14.0-18.0); LYMPHOCYTES % 21.4 % (20.0-50.0); MEAN PLATELET VOLUME 9.4 fl (7.4-10.4); MONOCYTES % 2.5 % (2.0-8.0); NEUTROPHILS % 76.0 % (40.0-76.0); PLATELET 104 x1000/uL (130-400); RED BLOOD CELL COUNT 3.91 mill/uL (4.7-6.1); RED CELL DISTRIBUTION WIDTH 16.7 % (11.6-14.6)
[2025-06-25] MEDS: BUDESONIDE 0.5MG/2ML NEB HHN SCH (08:15)
[2025-06-25 09:20] LABS: BG BASE EXCESS 18.3 mmol/L (-2.0-3.0); BG CARBOXYHEMOGLOBIN 0.9 % (0.5-1.5); BG DEOXYHEMOGLOBIN 6.2 % (0.0-5.0); BG FLOW(L/min) 2.00 L/min; BG FRACTION INSPIRED OXYGEN 28; BG HCO3 ACT 44.2 mmol/L (21.0-28.0); BG METHEMOGLOBIN 0.3 % (0.5-1.5); BG OXYGEN SATURATION 93.7 % (94.0-98.0); BG OXYHEMOGLOBIN 92.6 % (94.0-98.0); BG PCO2 58.6 mmHg (35.0-48.0); BG PH 7.495 (7.350-7.450); BG PO2 64.6 mmHg (83.0-108.0); BG SAMPLE SITE LEFT RADIAL; BG TOTAL HEMOGLOBIN 10.9 g/dL (13.5-17.5); BG VENT MODE NASAL CANNULA
[2025-06-25] MEDS: KCL 20MEQ/100ML PREMIX 100 ML IV SCH (12:02)
== END 2025-06-25 17:56 | disposition short-term general hospital (02) | DRG 91 ==
LOC: ER 11:29 → 5EST 13:32 → EDBEDREQ 13:47 → EDBEDREQSVC 13:47 → EDBEDREQTM 13:47 → ENRESERV 14:30
PROVIDERS: ADMIT Internal Medicine; ATTEND Internal Medicine
PROC: 5A09357 Assistance with Respiratory Ventilation, Less than 24 Consecutive Hours, Continuous Positive Airway Pressure (ICD-10-PCS; 2025-06-24)
PROC: 5A09357 Assistance with Respiratory Ventilation, Less than 24 Consecutive Hours, Continuous Positive Airway Pressure (ICD-10-PCS; principal; 2025-06-25)
DX: G92.9 Unspecified toxic encephalopathy (principal); J18.9 Pneumonia, unspecified organism; J96.21 Acute and chronic respiratory failure with hypoxia; J96.22 Acute and chronic respiratory failure with hypercapnia; I50.22 Chronic systolic (congestive) heart failure; E87.0 Hyperosmolality and hypernatremia; E46 Unspecified protein-calorie malnutrition; J44.0 Chronic obstructive pulmonary disease with (acute) lower respiratory infection; J44.1 Chronic obstructive pulmonary disease with (acute) exacerbation; Z68.1 Body mass index [BMI] 19.9 or less, adult; E86.0 Dehydration; I11.0 Hypertensive heart disease with heart failure; D50.9 Iron deficiency anemia, unspecified; I48.0 Paroxysmal atrial fibrillation; F03.90 Unspecified dementia, unspecified severity, without behavioral disturbance, psychotic disturbance, mood disturbance, and anxiety; E78.5 Hyperlipidemia, unspecified; G47.33 Obstructive sleep apnea (adult) (pediatric); R62.7 Adult failure to thrive; N40.0 Benign prostatic hyperplasia without lower urinary tract symptoms; E87.6 Hypokalemia; Z91.199 Patient's noncompliance with other medical treatment and regimen due to unspecified reason; Z79.01 Long term (current) use of anticoagulants; Z88.6 Allergy status to analgesic agent
CPT/HCPCS: 36415; 36600; 71045; 80048; 80076; 80305; 81003; 82375; 82805; 83735; 83880; 83930; 84100; 84439; 84443; 84484; 85025; 86850; 86900; 87070; 92610; 93005; 94070; 94640; 94660; 94664; 98960; 99291; A4606; J0456; J2919; J3480; J7070; J7626

== ENCOUNTER 2025-07-23 11:35 | Inpatient (IN) | payer OTHER ==
[~2025-07-23] VITALS: Ht 175.3 cm; Wt 56.7 kg
[2025-07-23] MEDS ORDERED: VANCOMYCIN 1000MG/250ML 250 ML IV STA (11:42)
[2025-07-23] MEDS ORDERED: CEFEPIME 2GM IN DEXT 5% 100ML IV ONE (11:45)
[2025-07-23] MEDS: LACTATED RINGERS 1,000 ML IV SCH (12:05)
[2025-07-23] MEDS: CEFEPIME 2GM/100ML 100 ML IV SCH (12:12)
[2025-07-23 12:28] LABS: BASOPHILS % 0.5 % (0.0-2.0); EOSINOPHILS % 2.3 % (0.0-5.0); HEMATOCRIT. 31.5 % (42.0-52.0); HEMOGLOBIN. 9.5 g/dL (14.0-18.0); LYMPHOCYTES % 11.9 % (20.0-50.0); MEAN PLATELET VOLUME 7.7 fl (7.4-10.4); MONOCYTES % 13.3 % (2.0-8.0); NEUTROPHILS % 72.0 % (40.0-76.0); PLATELET 114 x1000/uL (130-400); RED BLOOD CELL COUNT 4.08 mill/uL (4.7-6.1); RED CELL DISTRIBUTION WIDTH 17.5 % (11.6-14.6)
[2025-07-23 12:39] LABS: INR 1.1
[2025-07-23 12:40] LABS: CREATININE 0.7 mg/dL (0.6-1.3); UREA NITROGEN BLOOD 6 mg/dL (9-23)
[2025-07-23 12:41] LABS: ASPARTATE AMINOTRANSFERASE 28 IU/L (<34)
[2025-07-23 12:42] LABS: BILIRUBIN DIRECT < 0.1 mg/dL (<=3.0); BILIRUBIN TOTAL 0.3 mg/dL (0.1-1.0); PROTEIN TOTAL 6.2 g/dL (6.0-8.3); TROPONIN I HIGH SENSITIVITY 12 ng/L (3.0-53)
[2025-07-23] MEDS: KCL 20MEQ/100ML PREMIX 100 ML IV ONE (12:45)
[2025-07-23] MEDS: MAGNESIUM 2 G PREMIX 50 ML IV ONE (13:35)
[2025-07-23] MEDS: KCL 20MEQ/100ML PREMIX 100 ML IV SCH (13:35)
[2025-07-23] MEDS: NOREPINEPHRINE 8MG/250ML PMX 250 ML IV ONE (13:35)
[2025-07-23] MEDS: VANCOMYCIN 1G PREMIX 200 ML IV NR (13:36)
[2025-07-23] MEDS ORDERED: CLONIDINE 0.1MG TABLET PO PRN (14:45)
[2025-07-23] MEDS ORDERED: FERROUS SULFATE 325MG TABLET PO SCH (14:45)
[2025-07-23] MEDS ORDERED: GUAIFENESIN 200MG/10ML SUGAR FREE UDC PO PRN (14:45)
[2025-07-23] MEDS ORDERED: IPRATROPIUM/ALBUTEROL 0.5-3(2.5)MG/3ML NEB HHN PRN (14:45)
[2025-07-23] MEDS ORDERED: ONDANSETRON HCL 4MG/2ML INJ IV PRN (14:45)
[2025-07-23] MEDS ORDERED: ACETAMINOPHEN 325MG TABLET PO PRN (14:45)
[2025-07-23] MEDS ORDERED: PIPERACILLIN/TAZOBACTAM 3.375 G in DEXTROSE 5% WATER 50 ML IV SCH (14:45)
[2025-07-23 15:27] LABS: BG BASE EXCESS 15.0 mmol/L (-2.0-3.0); BG CARBOXYHEMOGLOBIN 0.9 % (0.5-1.5); BG DEOXYHEMOGLOBIN 0.9 % (0.0-5.0); BG FLOW(L/min) 4.00 L/min; BG FRACTION INSPIRED OXYGEN 36; BG HCO3 ACT 45.5 mmol/L (21.0-28.0); BG METHEMOGLOBIN 0.4 % (0.5-1.5); BG OXYGEN SATURATION 99.1 % (94.0-98.0); BG OXYHEMOGLOBIN 97.8 % (94.0-98.0); BG PCO2 103.3 mmHg (35.0-48.0); BG PH 7.262 (7.350-7.450); BG PO2 142.5 mmHg (83.0-108.0); BG SAMPLE SITE RIGHT RADIAL; BG TOTAL HEMOGLOBIN 10.6 g/dL (13.5-17.5); BG VENT MODE NASAL CANNULA
[2025-07-23 15:53] LABS: PHOSPHORUS 3.4 mg/dL (2.5-4.9)
[2025-07-23] MEDS: AZITHROMYCIN 500MG/250ML 250 ML IV STA (15:58)
[2025-07-23 16:27] VITALS: RESP 21
[2025-07-23] MEDS: DEXT 5% WATER 100 ML IV ONE (16:48)
[2025-07-23] MEDS: PANTOPRAZOLE SODIUM 40 MG/VIAL IV SCH (16:53)
[2025-07-23] MEDS: PIPERACILLIN/TAZO 3.375G/50ML IV SCH (16:56)
[2025-07-23 17:40] LABS: TROPONIN I HIGH SENSITIVITY 15 ng/L (3.0-53)
[2025-07-23 18:00] VITALS: BP 104/68; PULSE 93; RESP 20; TEMP 36.7; O2SAT 95
[2025-07-23 20:00] VITALS: BP 109/65; PULSE 102; RESP 23; TEMP 36.5; O2SAT 100
[2025-07-23 20:20] VITALS: RESP 23
[2025-07-23] MEDS: IPRATROPIUM/ALBUTEROL 0.5-3(2.5)MG/3ML NEB HHN SCH (20:39)
[2025-07-23] MEDS: MIDODRINE HCL 5MG TABLET PO SCH (21:00)
[2025-07-23 22:00] VITALS: BP 118/69; PULSE 120; RESP 27; O2SAT 98
[2025-07-23] MEDS: APIXABAN 2.5 MG TABLET PO SCH (22:46)
[2025-07-24] VITALS (18 sets, daily range): BP systolic 82–119; BP diastolic 49–75; PULSE 74–135; RESP 16–36; TEMP 36.5292–37.9; O2SAT 91–100
[2025-07-24] MEDS: ACETAMINOPHEN 325MG TABLET PO PRN (01:04)
[2025-07-24] MEDS: METOPROLOL TARTRATE 5MG/5ML VIAL IV NR (02:30)
[2025-07-24] MEDS: PIPERACILLIN/TAZO 3.375G/50ML IV SCH (05:13)
[2025-07-24 06:45] LABS: CLARITY URINE CLOUDY (CLEAR); COLOR URINE YELLOW (YELLOW); GLUCOSE URINE NEGATIVE (NEGATIVE); KETONES URINE 1+ (NEGATIVE); LEUKOCYTE ESTERASE URINE NEGATIVE (NEGATIVE); NITRITE URINE NEGATIVE (NEGATIVE); OCCULT BLOOD URINE TRACE (NEGATIVE); PH URINE 5.5 (4.5-8.0); PROTEIN URINE TRACE (NEGATIVE); SPECIFIC GRAVITY URINE 1.013 (1.005-1.030); UROBILINOGEN URINE 0.2 E.U./dL (0.2-1.0)
[2025-07-24 06:56] LABS: TROPONIN I HIGH SENSITIVITY 40 ng/L (3.0-53)
[2025-07-24 06:59] LABS: CREATININE 0.7 mg/dL (0.6-1.3); T4 FREE 1.18 ng/dL (0.89-1.76)
[2025-07-24 07:00] LABS: UREA NITROGEN BLOOD 8 mg/dL (9-23)
[2025-07-24 07:01] LABS: ASPARTATE AMINOTRANSFERASE 54 IU/L (<34)
[2025-07-24 07:02] LABS: BILIRUBIN DIRECT 0.1 mg/dL (<=3.0); BILIRUBIN TOTAL 0.3 mg/dL (0.1-1.0); PROTEIN TOTAL 5.7 g/dL (6.0-8.3)
[2025-07-24 07:03] LABS: *AMPHETAMINES SCREEN URINE NEGATIVE (NEGATIVE); BACTERIA URINE NONE SEEN; RBC URINE NONE SEEN /hpf (0-2); SQUAMOUS EPITHELIAL CELL URINE RARE /lpf (RARE/1+); WBC URINE 0-2 /hpf (0-2)
[2025-07-24 07:04] LABS: *BARBITURATES SCREEN URINE NEGATIVE (NEGATIVE); *BENZODIAZEPINES SCREEN URINE NEGATIVE (NEGATIVE); *COCAINE SCREEN URINE NEGATIVE (NEGATIVE); METHADONE URINE SCREEN NEGATIVE (NEGATIVE); OPIATES URINE SCREEN NEGATIVE (NEGATIVE)
[2025-07-24 07:05] LABS: CANNABINOID URINE SCREEN NEGATIVE (NEGATIVE); ECSTASY MDMA SCREEN URINE NEGATIVE (NEGATIVE); PHENCYCLIDINE URINE SCREEN NEGATIVE (NEGATIVE)
[2025-07-24 07:22] LABS: HEMATOCRIT. 28.9 % (42.0-52.0); HEMOGLOBIN. 8.9 g/dL (14.0-18.0); MEAN PLATELET VOLUME 8.7 fl (7.4-10.4); PLATELET 115 x1000/uL (130-400); RED BLOOD CELL COUNT 3.78 mill/uL (4.7-6.1); RED CELL DISTRIBUTION WIDTH 17.6 % (11.6-14.6)
[2025-07-24] MEDS: AMIODARONE 200MG TABLET PO SCH (09:00)
[2025-07-24 09:02] LABS: BG BASE EXCESS 17.1 mmol/L (-2.0-3.0); BG CARBOXYHEMOGLOBIN 0.3 % (0.5-1.5); BG DEOXYHEMOGLOBIN 2.4 % (0.0-5.0); BG FLOW(L/min) 6.00 L/min; BG FRACTION INSPIRED OXYGEN 44; BG HCO3 ACT 44.6 mmol/L (21.0-28.0); BG METHEMOGLOBIN 0.3 % (0.5-1.5); BG OXYGEN SATURATION 97.6 % (94.0-98.0); BG OXYHEMOGLOBIN 97.0 % (94.0-98.0); BG PCO2 72.8 mmHg (35.0-48.0); BG PH 7.405 (7.350-7.450); BG PO2 88.8 mmHg (83.0-108.0); BG SAMPLE SITE RIGHT RADIAL; BG TOTAL HEMOGLOBIN 10.1 g/dL (13.5-17.5); BG VENT MODE NASAL CANNULA
[2025-07-24] MEDS: BUDESONIDE 0.5MG/2ML NEB HHN SCH (09:43)
[2025-07-24] MEDS: SODIUM CHLORIDE 0.9% 1,000 ML IV NR (09:58)
[2025-07-24] MEDS: POTASSIUM CHLORIDE 20MEQ TABLET SR PO NR (10:28)
[2025-07-24] MEDS: PREDNISONE 20MG TABLET PO SCH (10:28)
[2025-07-24] MEDS: FERROUS SULFATE 325MG TABLET PO SCH (10:28)
[2025-07-24] MEDS: KCL 20MEQ/100ML PREMIX 100 ML IV NR (10:28)
[2025-07-24] MEDS: VANCOMYCIN 1G PREMIX 200 ML IV SCH (12:58)
[2025-07-24 16:13] LABS: LYMPHOCYTES % MANUAL 11.0 % (20.0-50.0); MONOCYTES % MANUAL 12.0 % (2.0-8.0); NEUTROPHILS % MANUAL 77.0 % (45.0-75.0); PLATELET ESTIMATE NORMAL
[2025-07-24] MEDS ORDERED: KETOROLAC 15MG/ML VIAL IV PRN (17:00)
[2025-07-24] MEDS: HYDROCODONE/ACETAMINOPHEN 5/325MG TABLET PO NR (17:39)
[2025-07-24] MEDS: DEXT 5%/0.45% NACL 1000ML 1,000 ML IV ONE (17:40)
[2025-07-24] MEDS: SODIUM CHLORIDE 0.9% 1,000 ML IV ONE (18:56)
[2025-07-24] MEDS: MIDODRINE HCL 5MG TABLET PO SCH ×2 (18:56→21:19)
[2025-07-24] MEDS ORDERED: MIDODRINE HCL 5MG TABLET PO SCH (21:00)
[2025-07-25] VITALS (15 sets, daily range): BP systolic 90–114; BP diastolic 56–71; PULSE 68–94; RESP 21–32; TEMP 36.8–37.1; O2SAT 96–100
[2025-07-25 05:22] LABS: BASOPHILS % 0.2 % (0.0-2.0); EOSINOPHILS % 0.0 % (0.0-5.0); HEMATOCRIT. 27.1 % (42.0-52.0); HEMOGLOBIN. 8.5 g/dL (14.0-18.0); LYMPHOCYTES % 20.5 % (20.0-50.0); MEAN PLATELET VOLUME 8.3 fl (7.4-10.4); MONOCYTES % 9.3 % (2.0-8.0); NEUTROPHILS % 70.0 % (40.0-76.0); PLATELET 146 x1000/uL (130-400); RED BLOOD CELL COUNT 3.64 mill/uL (4.7-6.1); RED CELL DISTRIBUTION WIDTH 17.3 % (11.6-14.6)
[2025-07-25 05:30] LABS: CREATININE 0.7 mg/dL (0.6-1.3); UREA NITROGEN BLOOD 9 mg/dL (9-23)
[2025-07-25 05:32] LABS: PHOSPHORUS 1.7 mg/dL (2.5-4.9)
[2025-07-25] MEDS: POTASSIUM CHLORIDE 20MEQ TABLET SR PO NR (08:17)
[2025-07-25] MEDS: MAGNESIUM 2 G PREMIX 50 ML IV NR (08:19)
[2025-07-25] MEDS: POTASSIUM PHOSPHATE 30 MMOL in SODIUM CHLORIDE 0.9% 490 ML IV NR (10:00)
[2025-07-25] MEDS ORDERED: KETOROLAC 15MG/ML VIAL IV NR (12:30)
[2025-07-25] MEDS: HYDROCODONE/ACETAMINOPHEN 5/325MG TABLET ONE (13:53)
[2025-07-25] MEDS: HYDROCODONE/ACETAMINOPHEN 5/325MG TABLET PO NR (13:59)
== END 2025-07-25 18:38 | disposition short-term general hospital (02) | DRG 189 ==
LOC: ER 11:35 → EDBEDREQ 13:29 → EDBEDREQTM 13:29 → EDBEDREQSVC 13:29 → ENRESERV 22:06 → 5EST 22:33
PROVIDERS: ADMIT Hospitalist; ATTEND Hospitalist
PROC: 5A09357 Assistance with Respiratory Ventilation, Less than 24 Consecutive Hours, Continuous Positive Airway Pressure (ICD-10-PCS; principal; 2025-07-23)
DX: J96.22 Acute and chronic respiratory failure with hypercapnia (principal); J18.9 Pneumonia, unspecified organism; G93.41 Metabolic encephalopathy; J44.1 Chronic obstructive pulmonary disease with (acute) exacerbation; I50.22 Chronic systolic (congestive) heart failure; E87.20 Acidosis, unspecified; E87.0 Hyperosmolality and hypernatremia; J44.0 Chronic obstructive pulmonary disease with (acute) lower respiratory infection; J96.21 Acute and chronic respiratory failure with hypoxia; I11.0 Hypertensive heart disease with heart failure; I95.9 Hypotension, unspecified; G47.33 Obstructive sleep apnea (adult) (pediatric); E78.5 Hyperlipidemia, unspecified; I25.10 Atherosclerotic heart disease of native coronary artery without angina pectoris; I48.91 Unspecified atrial fibrillation; E86.0 Dehydration; D69.6 Thrombocytopenia, unspecified; E87.6 Hypokalemia; D50.9 Iron deficiency anemia, unspecified; Z79.899 Other long term (current) drug therapy; Z99.81 Dependence on supplemental oxygen; Z88.8 Allergy status to other drugs, medicaments and biological substances; Z86.73 Personal history of transient ischemic attack (TIA), and cerebral infarction without residual deficits; Z91.199 Patient's noncompliance with other medical treatment and regimen due to unspecified reason; Z79.01 Long term (current) use of anticoagulants
CPT/HCPCS: 36415; 36600; 71045; 80048; 80076; 80202; 80305; 81003; 82140; 82375; 82550; 82805; 82962; 83540; 83550; 83605; 83735; 83880; 84100; 84132; 84145; 84439; 84443; 84484; 85025; 92610; 93005; 94070; 94640; 94660; 94664; 94760; 96365; 96367; 96368; 96375; 99291; A4606; J0456; J0692; J2470; J2543; J3373; J3475; J3480; J3490; J7040; J7512; J7626